=== PATIENT | male | born 1975 | race African-American/Black ===

== ENCOUNTER 2017-03-22 07:38 | Observation (INO) ==
--- NOTE | 2017-03-22 08:03 | Emergency Department Note ---
Disposition Clinical Impression: Abdominal pain Qualifiers: Abdominal location: right upper quadrant Qualified Code(s): R10.11 - Right upper quadrant pain Cholecystitis with cholelithiasis Qualifiers: Cholelithiasis location: gallbladder Cholecystitis acuity: acute Biliary obstruction: without biliary obstruction Qualified Code(s): K80.00 - Calculus of gallbladder with acute cholecystitis without obstruction Disposition: Admitted As Inpatient General Adult HPI - General Stated complaint: abd pain Time Seen by Provider: 03/22/17 07:42 Source: patient Limitations: no limitations Nursing Notes Reviewed: Yes Vital Signs Reviewed: Yes - History of Present Illness HPI Narrative: with chief complaint of RUQ abdominal pain. Onset this AM. described as sharp , constant, radiates to LUQ. No chills, fevers, diarrhea, constipation, nausea. Emesis x1 (nonbloody, nonbilious). Patient notes he has felt this pain before but is unsure as to what the cause was at that time. He is unable to compare it to previous nephrolithiasis. Patient's mother is inbound. PMH: Hx nephrolithiasis, otherwise patient states he has no past medical history Meds: patient denies any medications PSH: none. Chart check PMH: boarderline intellectual functioning, psychosis, potential for explosive behavior, gen anxiety Chart check Meds: Remron Pain Scale: 10 - Related Data Previous Rx's Medication Instructions Recorded Mirtazapine [Remeron] 15 mg PO HS #30 tablet 08/03/16 risperiDONE [RisperDAL] 1 mg PO BID #60 tablet 08/03/16 Allergies Allergy/AdvReac Type Severity Reaction Status Date / Time No Known Allergies Allergy Verified 08/26/16 03:28 Past Medical History - Past Medical History Medical history: Reports: no medical history Surgical history: Reports: other Psychiatric history: Reports: anxiety, previous psychiatric hospitalization - Social History Smoking Status: Current every day smoker Smokeless Tobacco Status: No Alcohol use: Reports: none Drug use: Reports: none Physical Exam Vital signs reviewed: Patient hypertensive which is improved after analgesia. General: Patient is alert, oriented, and in no acute distress. HEENT: No facial asymmetry. Head is normocephalic and atraumatic. Trachea midline. Cardiovascular: Heart regular rate and rhythm without clicks, rubs, gallops, or murmurs. No JVD. PMI nondisplaced. Respiratory: Symmetric chest rise with poor respiratory effort. Bilateral breath sounds are clear without wheezing, crackles, or rhonchi. Abdomen: Bowel sounds present normoactive x-4 quadrants. Abdomen is nondistended. Tenderness in the right upper quadrant with extension to the right CVA with mild pain to kidney percussion. Abdominal exam limited as patient is voluntarily guarding which is not improved with knees drawn to chest. Psych: Patient's affect is appropriate for situation. - General Limitations: no limitations General appearance: alert Course Course Narrative: Andres suspects gallbladder versus right nephrolithiasis Patient's blood work is returned with leukocytosis and AST elevation nearly 3 times upper limit of normal. His pain is improved with Toradol. US gallbladder suspicious for cholelithiasis. Spoke with Dr. Humphrey, he accepts the patient to his service. Vital Signs Temperature 97.9 F 03/22/17 07:39 Pulse Rate 74 03/22/17 07:39 Respiratory Rate 18 03/22/17 07:39 Blood Pressure 187/70 03/22/17 07:39 O2 Sat by Pulse Oximetry 100 03/22/17 07:39 Temperature 97.9 F 03/22/17 07:39 Pulse Rate 87 03/22/17 13:19 Respiratory Rate 18 03/22/17 13:19 Blood Pressure 114/69 03/22/17 13:19 O2 Sat by Pulse Oximetry 98 03/22/17 13:19 Medical Decision Making - [facility] Narrative Medical decision making narrative: I examined this patient and my medical decision-making was reviewed with the ABALONE FISHERMAN/PA/Advanced Practice Nurse/Resident Physician. I agree with the documented findings, disposition and treatment plan as described except to the extent set forth below. Patient was seen and evaluated today by Dr. Mosquera and myself, I agree with his evaluation and management plan, I supervised the care of the patient at stay. Patient presents today with right upper quadrant pain but also pain on his right flank. He thought maybe it was kidney stone. He still has his gallbladder. Was nauseous this morning none now. Has not eaten yet. No jaundice. He has some tenderness but nonsurgical abdomen. Denies any chest pain or shortness of breath no fever. Nontoxic here. Were going to try to make him comfortable, check labs, then reassess and determine if he needs imaging or not. He is in agreement with this plan. 0858 hours: Pt feeling better. SLeeping. Awaiting hepatic panel and urine. Patient had an EKG performed shows a sinus rhythm, rate is 71, QRS is 95, QTc is 386, left atrial enlargement with left axis deviation no signs of acute ischemia at this a flattening in leads 3 this EKG had done in 2010 shows no changes except for rate. Patient's labs are returning awaiting on urinalysis he is going over to ultrasound to ultrasound his gallbladder since he has an elevation in his white count. 1212 hrs.: Patient's ultrasound came back and does have signs of cholecystitis with stones. We are going to speak with surgery and get him admitted to the hospital. Patient's in agreement with this plan. Gallbladder Ultrasound 03/22/17 09:42 IMPRESSION: Abnormal gallbladder with stones and significant thickening of the wall. Acute cholecystitis should be considered. RECOMMENDATIONS: HIDA scan D/ / 03/22/2017 12:08:24 Kati Hollis MD / lisa Interpreting Provider: Kati Hollis MD 1218 hrs.: Dr. Mark accepts the patient for admission. Patient's in agreement. Waiting on bed placement. - Lab Data Result diagrams: 03/22/17 08:22 03/22/17 08:22 Lab Results 03/22/17 03/22/17 03/22/17 Range/Units 08:22 08:22 10:57 WBC 15.2 H (4.3-11.1) K/mcL RBC 4.94 (4.19-5.50) M/mcL Hgb 14.9 (12.9-16.9) g/dL Hct 43.9 (37.5-50.1) % MCV 88.9 (83.0-100.0) fL MCH 30.2 (28.0-33.3) pg MCHC 33.9 (31.6-35.5) g/dL RDW 13.2 (11.5-14.5) % Plt Count 180 (140-400) K/mcL MPV 11.8 (9.4-12.4) fL Immature Gran % 0.3 (0-4) % Seg Neutrophils % 90.0 % Lymphocytes % 5.5 % Monocytes % 2.9 % Eosinophils % 1.2 % Basophils % 0.1 % Neutrophils # 13.7 H (1.6-8.9) K/mcL Lymphocytes # 0.8 (0.6-4.6) K/mcL Monocytes # 0.4 (0.0-1.3) K/mcL Eosinophils # 0.2 (0.0-0.6) K/mcL Basophils # 0.0 (0.0-0.2) K/mcL Sodium 141 (136-145) mEq/L Potassium 3.4 L (3.5-4.5) mEq/L Chloride 106 (98-109) mEq/L Carbon Dioxide 26 (19-29) mEq/L BUN 17 (8-26) mg/dL Creatinine 1.04 (0.72-1.25) mg/dL Est GFR ( Amer) > 60 (> 60) Est GFR (Non-Af Amer) > 60 (> 60) BUN/Creatinine Ratio 16 (6-26) Glucose 97 (70-99) mg/dL Calculated Osmolality 293 (280-300) Calcium 9.2 (8.6-10.8) mg/dL Total Bilirubin 0.7 (0.2-1.2) mg/dL Direct Bilirubin 0.4 (0.0-0.5) mg/dL Indirect Bilirubin 0.3 (0.0-1.2) mg/dL AST 90 H (5-34) Units/L ALT 47 (0-55) Units/L Alkaline Phosphatase 69 (38-126) Units/L Serum Total Protein 7.1 (6.0-8.3) g/dL Albumin 3.8 (3.5-5.0) g/dL Globulin 3.3 (2.4-3.5) g/dL Albumin/Globulin Ratio 1.2 (1.1-2.2) Lipase 33 (8-78) Units/L Urine Color Dark Yellow (Yellow) Urine Clarity Clear (Clear) Urine pH 6.0 (5.0-8.0) pH Units Ur Specific [place] 1.028 H (1.010-1.025) Urine Protein Negative (Neg-Trace) mg/dL Urine Glucose (UA) Normal (Normal) mg/dL Urine Ketones Negative (Negative) mg/dL Urine Blood Negative (Negative) Urine Nitrite Negative (Negative) Urine Bilirubin Small H (Negative) Urine Urobilinogen 2.0 H (Normal) mg/dL Ur Leukocyte Esterase Negative (Negative) Ur Culture Indicated? NO (NO)
[2017-03-22] MEDS ORDERED: Ketorolac 15 MG/ML VIAL IVP ONE ×2 (08:12→17:07)
[2017-03-22] MEDS ORDERED: 0.9 % Sodium Chloride 1,000 ML IVC ONE (08:12)
[2017-03-22 08:28] LABS: Basophils % 0.1 %; Eosinophils # 0.2 K/mcL (0.0-0.6); Eosinophils % 1.2 %; Hematocrit 43.9 % (37.5-50.1); Hemoglobin 14.9 g/dL (12.9-16.9); Immature Granulocytes % 0.3 % (0-4); Lymphocytes # 0.8 K/mcL (0.6-4.6); Lymphocytes % 5.5 %; Mean Corpuscular HGB Conc 33.9 g/dL (31.6-35.5); Mean Corpuscular Hemoglobin 30.2 pg (28.0-33.3); Mean Corpuscular Volume 88.9 fL (83.0-100.0); Mean Platelet Volume 11.8 fL (9.4-12.4); Monocytes # 0.4 K/mcL (0.0-1.3); Monocytes % 2.9 %; Neutrophils # 13.7 K/mcL (1.6-8.9); Platelet Count 180 K/mcL (140-400); Red Blood Count 4.94 M/mcL (4.19-5.50); Red Cell Distribution Width 13.2 % (11.5-14.5)
[2017-03-22 08:41] LABS: BUN/Creatinine Ratio 16 (6-26); Blood Urea Nitrogen 17 mg/dL (8-26); Calcium 9.2 mg/dL (8.6-10.8); Carbon Dioxide 26 mEq/L (19-29); Chloride 106 mEq/L (98-109); Glucose 97 mg/dL (70-99); Lipase 33 Units/L (8-78); Osmolality,Calculated 293 (280-300); Potassium 3.4 mEq/L (3.5-4.5); Sodium 141 mEq/L (136-145); eGFR For African Americans > 60 (> 60); eGFR For Non-African Americans > 60 (> 60)
[2017-03-22 09:21] LABS: Alanine Aminotransferase 47 Units/L (0-55); Albumin 3.8 g/dL (3.5-5.0); Albumin/Globulin Ratio 1.2 (1.1-2.2); Alkaline Phosphatase 69 Units/L (38-126); Aspartate Amino Transferase 90 Units/L (5-34); Bilirubin,Direct 0.4 mg/dL (0.0-0.5); Bilirubin,Indirect 0.3 mg/dL (0.0-1.2); Bilirubin,Total 0.7 mg/dL (0.2-1.2); Globulin 3.3 g/dL (2.4-3.5); Total Protein 7.1 g/dL (6.0-8.3)
[2017-03-22 11:24] LABS: Bilirubin,Urine Small (Negative); Blood,Urine Negative (Negative); Clarity,Urine Clear (Clear); Color,Urine Dark Yellow (Yellow); Glucose,Urine (UA) Normal (Normal); Ketones,Urine Negative (Negative); Leukocyte Esterase,Urine Negative (Negative); Nitrite,Urine Negative (Negative); Protein,Urine Negative (Neg-Trace); Specific Gravity,Urine 1.028 (1.010-1.025)
[2017-03-22] MEDS ORDERED: Ondansetron 4 MG/2 ML VIAL IVP PRN ×2 (12:39→21:03)
[2017-03-22] MEDS ORDERED: 0.9 % Sodium Chloride 1,000 ML IVC SCH ×2 (12:45→21:03)
[2017-03-22] MEDS ORDERED: *HR* HYDROmorphone (PF) 1 MG/ML SYRINGE IVP PRN ×3 (12:46→21:03)
--- NOTE | 2017-03-22 12:52 | General Surg History&Physical ---
<Bhavya Mujica - Last Filed: 03/22/17 13:56> Date of Encounter: 03/22/17 Time of Encounter: 12:50 Assessment and Plan (1) Cholecystitis with cholelithiasis Current Visit: Yes Status: Acute Discussed Ultrasound results and lab results with patient and patients caregiver /mother. Patient with symptoms consistent with symptomatic acute cholecysitis with cholelitiasis. Diffuse abdominal tenderness to palpation on exam. Plan: Laparoscopic cholecystectomy with possible cholangiogram. Open breast and benefits discussed patient and caregiver wished to proceed. Nothing by mouth IV fluids at 75 mL per hour IV antibiotics- Mefoxin 2 g every 8 hours Supportive care and pain control Risks, benefits, alternatives, expected outcomes reviewed with the patient is agreement to proceed to the operating room with Dr. Humphrey for laparoscopic cholecystectomy in the next 24 hours Incentive spirometer every 1 hour while awake PPI therapy daily The assessment and plan as outlined above was discussed with the patient and/or family members who expressed understanding and agreement. All questions were answered. Qualifiers: Cholelithiasis location: gallbladder Cholecystitis acuity: acute Biliary obstruction: without biliary obstruction Qualified Code(s): K80.00 - Calculus of gallbladder with acute cholecystitis without obstruction (2) Borderline intellectual functioning Current Visit: Yes Status: Chronic The assessment and plan as outlined above was discussed with the patient and/or family members who expressed understanding and agreement. All questions were answered. History of Present Illness Chief complaint: stomach pain HPI: Mr. Valentine is a 41 year old male with a past medical history of MRDD, neurofibromatosis, pituitary adenoma, tobacco abuse disorder who presented to the emergency room today for evaluation of "stomach pain". Laboratory results reveal patient has leukocytosis with left shift, elevated AST, imaging of ultrasound revealed significant thickening of the gallbladder wall with cholelithiasis. Dr. Humphrey was consulted for evaluation. Patient describes that stomach pain as constant dull aching with episodes of sharp pains that radiate down to his right lower quadrant that are intermittent in nature. Stomach pain began "sometime this morning" after drinking a soda pop. Patient is unsure at what time this occurred or if he had anything to eat prior to the episode. Patient is a very poor historian and is unsure if he has ever had anything like this before. He states that this morning he did have one episode of nausea with nonbloody nonbilious emesis prior to arrival. He denies: Fever, chills, diarrhea, hematuria, pyuria, bleeding or clotting disorders, heartburn or reflux. Patient is unsure of medications he may be taking. Pain was improved with Toradol. Patient states that he lives at home with his mother Heydi. Will contact mother for further information and consent. Past Med Surg Social Fam HX - Past Medical History Source: old records reviewed Medical history: other (Neurofibromatosis, pituitary adenoma, tobacco abuse disorder) Psychiatric history: anxiety, previous psychiatric hospitalization, other (MRDD) - Past Surgical History Surgical History: other (Biopsy of chest nodule, cyst removal, right knee) - Social History Smoking Status: Current every day smoker Packs per day: 3-4 Smokeless Tobacco Status: No Alcohol use: none Drug use: none Current living situation: With Family Activity Level: Independent ambulation Recent Out of Country Travel Within the Last 8 Weeks: No Medications and Allergies No Known Home Drugs 03/22/17 [History] Allergies No Known Allergies Allergy (Verified 03/22/17 13:49) Review of Systems ROS unobtainable: due to mental status All systems PM: A 10-system review of systems was performed and is negative for pertinent findings except as documented above in the HPI. General Surgery Exam Initial Vital Signs Temp Pulse Resp BP Pulse Ox 97.9 F 74 18 187/70 100 03/22/17 07:39 03/22/17 07:39 03/22/17 07:39 03/22/17 07:39 03/22/17 07:39 - General physical appearance no distress. negative: jaundice - Eyes PERRL, normal ocular movement - ENT normal mucosa - Neck trachea midline, no venous distension - Respiratory normal expansion, normal respiratory effort, clear to auscultation - Cardiovascular Cardiovascular exam: Present: RRR, no murmurs/rubs/gallops - Abdomen Abdomen general surgery: Present: bowel sounds present, soft, tender (Patient reports tenderness diffusely all quadrants of abdomen on palpation). Absent: guarding, rebound, rigid - Integumentary Integumentary general surgery: Present: other (Diffuse neuro fibromas) - Neurologic Present: CN 2-12 grossly intact, normal sensation, other (MRDD) - Psychiatric Psychiatric general surgery: Present: oriented to person, oriented to place, speech is normal Results - Labs 03/22/17 08:22 03/22/17 08:22 Abnormal lab results WBC 15.2 K/mcL (4.3-11.1) H 03/22/17 08:22 Neutrophils # 13.7 K/mcL (1.6-8.9) H 03/22/17 08:22 Potassium 3.4 mEq/L (3.5-4.5) L 03/22/17 08:22 AST 90 Units/L (5-34) H 03/22/17 08:22 Ur Specific [place] 1.028 (1.010-1.025) H 03/22/17 10:57 Urine Bilirubin Small (Negative) H 03/22/17 10:57 Urine Urobilinogen 2.0 mg/dL (Normal) H 03/22/17 10:57 Diabetes panel 03/22/17 Range/Units 08:22 Sodium 141 (136-145) mEq/L Potassium 3.4 L (3.5-4.5) mEq/L Chloride 106 (98-109) mEq/L Carbon Dioxide 26 (19-29) mEq/L BUN 17 (8-26) mg/dL Creatinine 1.04 (0.72-1.25) mg/dL Glucose 97 (70-99) mg/dL Calcium 9.2 (8.6-10.8) mg/dL AST 90 H (5-34) Units/L ALT 47 (0-55) Units/L Alkaline Phosphatase 69 (38-126) Units/L Albumin 3.8 (3.5-5.0) g/dL Calcium panel 03/22/17 Range/Units 08:22 Calcium 9.2 (8.6-10.8) mg/dL Albumin 3.8 (3.5-5.0) g/dL Pituitary panel 03/22/17 Range/Units 08:22 Sodium 141 (136-145) mEq/L Potassium 3.4 L (3.5-4.5) mEq/L Chloride 106 (98-109) mEq/L Carbon Dioxide 26 (19-29) mEq/L BUN 17 (8-26) mg/dL Creatinine 1.04 (0.72-1.25) mg/dL Glucose 97 (70-99) mg/dL Calcium 9.2 (8.6-10.8) mg/dL Adrenal panel 03/22/17 Range/Units 08:22 Sodium 141 (136-145) mEq/L Potassium 3.4 L (3.5-4.5) mEq/L Chloride 106 (98-109) mEq/L Carbon Dioxide 26 (19-29) mEq/L BUN 17 (8-26) mg/dL Creatinine 1.04 (0.72-1.25) mg/dL Glucose 97 (70-99) mg/dL Calcium 9.2 (8.6-10.8) mg/dL Total Bilirubin 0.7 (0.2-1.2) mg/dL AST 90 H (5-34) Units/L ALT 47 (0-55) Units/L Alkaline Phosphatase 69 (38-126) Units/L Albumin 3.8 (3.5-5.0) g/dL All other labs normal. - Imaging US - abdomen: report reviewed, image reviewed <Ryley Humphrey - Last Filed: 03/22/17 15:43> Date of Encounter: 03/22/17 History of Present Illness HPI: Mr. Valentine is a 41 year old male Review of Systems All systems PM: A 10-system review of systems was performed and is negative for pertinent findings except as documented above in the HPI. General Surgery Exam Initial Vital Signs Temp Pulse Resp BP Pulse Ox 97.9 F 74 18 187/70 100 03/22/17 07:39 03/22/17 07:39 03/22/17 07:39 03/22/17 07:39 03/22/17 07:39 Results - Labs 03/22/17 08:22 03/22/17 08:22 Abnormal lab results WBC 15.2 K/mcL (4.3-11.1) H 03/22/17 08:22 Neutrophils # 13.7 K/mcL (1.6-8.9) H 03/22/17 08:22 Potassium 3.4 mEq/L (3.5-4.5) L 03/22/17 08:22 AST 90 Units/L (5-34) H 03/22/17 08:22 Ur Specific [place] 1.028 (1.010-1.025) H 03/22/17 10:57 Urine Bilirubin Small (Negative) H 03/22/17 10:57 Urine Urobilinogen 2.0 mg/dL (Normal) H 03/22/17 10:57 All other labs normal. - Attending Attestation I examined this patient and my medical decision-making was reviewed with the PACKAGER OR PACKER AND WEIGHER/PA/Advanced Practice Nurse/Resident Physician. I agree with the documented findings, disposition and treatment plan as described except to the extent set forth below. The patient is seen and evaluated in the emergency department. I concur that he has acute cholecystitis and cholelithiasis. Will be treated with IV antibiotics and urgent laparoscopic cholecystectomy. Ryley Humphrey MD FACS
[2017-03-22] MEDS ORDERED: *HR* Morphine 2 MG/ML SYRINGE IVP ONE ×2 (13:24→13:45)
[2017-03-22] MEDS ORDERED: *HR* FentaNYL (PF) 100 MCG/2 ML VIAL ONE ×2 (14:21→16:44)
[2017-03-22] MEDS ORDERED: *HR* Propofol 200 MG/20 ML VIAL IVP ONE (14:21)
[2017-03-22] MEDS ORDERED: *HR* Rocuronium Bromide 50 MG/5 ML VIAL ONE (14:21)
[2017-03-22] MEDS ORDERED: Neostigmine Methylsulfate 3 MG/3 ML SYRINGE ONE (14:21)
[2017-03-22] MEDS ORDERED: Lidocaine -MPF 2% 2 ML VIAL ONE (14:21)
[2017-03-22] MEDS ORDERED: Dexamethasone 4 MG/ML VIAL ONE ×2 (14:21→16:35)
[2017-03-22] MEDS ORDERED: Lidocaine -MPF 4% 5 ML AMPUL ONE (14:21)
[2017-03-22] MEDS ORDERED: *HR* Midazolam HCl 2 MG/2 ML VIAL ONE (14:21)
[2017-03-22] MEDS ORDERED: Ondansetron 4 MG/2 ML VIAL ONE (14:21)
[2017-03-22] MEDS ORDERED: *HR* Succinylcholine 200 MG/10 ML VIAL IVP ONE (14:21)
[2017-03-22] MEDS ORDERED: cefOXitin 2,000 MG in D5% in Water (Mini-Bag+) 100 ML IVPB SCH (16:00)
--- NOTE | 2017-03-22 16:10 | Anesthesia Evaluation PreOp ---
Date of Encounter: 03/22/17 Time of Encounter: 16:01 - Past History Planned Operation: Laparoscopic Cholecystectomy Cardiac History: Denies any Significant Hx Pulmonary History: Smoker (1 year) FOOD QUALITY TESTER History: Other (MRDD) Other Medical History: Other (neurofibromatotsis, anxiety) Anesthesia History: Past Anesthesia Alcohol Use: none Drug use: none Medications and Allergies No Known Home Drugs 03/22/17 [History] Allergies No Known Allergies Allergy (Verified 03/22/17 13:49) - Meds/Allergy Pre-op Review Medications Reviewed: Yes Allergies Reviewed: Yes Beta Blockers on Current Med List: No Anesthesia Results - Labs 03/22/17 08:22 03/22/17 08:22 - Imaging Additional studies: 02/06/2011 Stress CONCLUSION The nuclear exam quality was poor. ==> The nuclear exam reveals no definite evidence of stress-induced ischemia. ==> Inferolatetral wall fixed defect most consistent with G I activity attenuation artifact. ==> The left ventricle does not appear dilated. ==> Segmental ventricular function reveals no wall motion abnormalities. ==> The gated ejection fraction was calculated at 76%. Anesthesia Exam Vital Signs/O2 Sat, Most Current Temp Pulse Resp BP Pulse Ox 97.4 F L 73 16 133/81 99 03/22/17 14:25 03/22/17 14:25 03/22/17 14:25 03/22/17 14:25 03/22/17 14:32 Height: 5'10''/1.78 m Weight: 120 lbs/54.43 kg NPO (# of Hours): 8 Pain Scale Used: Numeric (1 - 10) - HEENT Pupil (Motor): EOMI Mallampati: III Teeth: Normal Oral Opening: Greater than 3 - FOOD QUALITY TESTER LOC: Oriented FOOD QUALITY TESTER Motor: Normal RUE, Normal LUE, Normal RLE, Normal LLE, Normal Face FOOD QUALITY TESTER Sensory: Normal: RUE, LUE, RLE, LLE, Face - Cardiac Rhythm: Regular Murmur: None - Pulmonary Breath Sounds: bilateral Clear Respiratory Effort: Symmetrical Anesthesia Assess/Plan ASA Score: 2 Modified [place] Scale for Level of Consciousness: Cooperative, oriented, and tranquil Anesthetic Plan: General Monitoring Plan: Standard Monitors Recovery Plan: PACU
[2017-03-22] MEDS ORDERED: CefOXitin 2,000 MG VIAL IVPB ONE (16:25)
[2017-03-22] MEDS ORDERED: *HR* HYDROmorphone 2 MG/ML SYRINGE ONE (16:54)
[2017-03-22] MEDS ORDERED: *HR* Labetalol 100 MG/20 ML MDV IVP PRN (17:07)
[2017-03-22] MEDS ORDERED: *HR* Promethazine 25 MG/ML VIAL IVP PRN (17:07)
[2017-03-22] MEDS ORDERED: Ondansetron 4 MG/2 ML VIAL IVP ONE ×2 (17:07→21:03)
[2017-03-22] MEDS ORDERED: Dexamethasone 4 MG/ML VIAL IVP ONE (17:07)
[2017-03-22] MEDS ORDERED: *HR* Meperidine 25 MG/ML SYRINGE IVP PRN (17:07)
--- NOTE | 2017-03-22 17:38 | Operative Note ---
Date of procedure: 03/22/17 Pre-op diagnosis: Acute cholecystitis cholelithiasis Post-op diagnosis: same Procedure: Laparoscopic cholecystectomy, attempted cholangiogram Anesthesia: ALEXY Surgeon: Ryley Humphrey Estimated blood loss (cc): 50 Specimen: Gallbladder and contents Condition: stable Disposition: PACU Procedure in Detail: Laparoscopic cholecystectomy and attempted intraoperative cholangiogram Operative procedure after informed consent and appropriate patient identification timeout the patient's take major operating suite and placed supine position given adequate general endotracheal anesthesia the abdomen is prepped and draped in sterile fashion utilizing ChloraPrep standard draping techniques timeout was taken patient is identified. I made a vertical midline incision below the umbilicus dissected down to level of fascia there are 2 traction stitches placed in the abdominal cavity was entered visually. A Freire trocar was placed in the abdomen and the abdomen was insufflated to 15 mmHg pressure CO2 the gallbladder was visualized. A placement 11 port in the subxiphoid area and 2 5 mm ports in the subcostal area. The gallbladder was grasped and elevated. A variety of blunt and sharp dissection techniques were used to isolate the cystic duct and cystic artery. The cystic artery was controlled with 2 surgical clips proximally and one distally and it was divided I placed a surgical clip on the neck the gallbladder and attempted to place a cholangiogram catheter. The cystic duct was too small to accept the cholangiogram catheter. the cystic duct was controlled with 2 surgical clips proximally and was divided the gallbladder was removed from the gallbladder fossae using electrocautery. The gallbladder was removed through the #11 port site. I replaced the #11 port and irrigated with copious amounts of antibiotic containing solution. There is no evidence of bleeding or bile leak. All trochars were removed. Fascia was closed with 0 Vicryl skin with 2-0 and 4-0 Vicryl he tolerated the procedure well and was transferred to recovery in stable condition
--- NOTE | 2017-03-22 18:44 | Anesthesia Evaluation Post Op ---
Date of Encounter: 03/22/17 Time of Encounter: 18:35 - Vital Signs Vital Signs: Vital Signs/O2 Sat, Most Current Temp Pulse Resp BP Pulse Ox 98.8 F 83 16 131/97 99 03/22/17 18:30 03/22/17 18:30 03/22/17 18:30 03/22/17 18:30 03/22/17 18:30 - Lungs Lungs: Clear Ascult./Percussion - Airway Airway: Non-obstructed - Cardiovascular Regular Rate - Mental Status Mental Status: Alert & Oriented, Answers Appropriately - Pain Pain Scale: 0 Pain Scale used: Numeric (1 - 10) - Nausea Vomiting Nausea Vomiting: Not Present - Hydration Hydration: NPO, Has not voided - Discharge PostOp Status: Transfer Patient to floor
[2017-03-22] MEDS ORDERED: *HR* OxyCODONE/APAP 5/325 TABLET PO PRN (21:03)
[2017-03-22] MEDS: cefOXitin 2,000 MG in D5% in Water (Mini-Bag+) 100 ML IVPB SCH (23:13)
[2017-03-23 05:04] LABS: Basophils % 0.1 %; Hematocrit 39.8 % (37.5-50.1); Immature Granulocytes % 0.3 % (0-4); Lymphocytes # 0.6 K/mcL (0.6-4.6); Lymphocytes % 6.7 %; Mean Corpuscular HGB Conc 33.4 g/dL (31.6-35.5); Mean Corpuscular Hemoglobin 29.6 pg (28.0-33.3); Mean Corpuscular Volume 88.4 fL (83.0-100.0); Mean Platelet Volume 12.4 fL (9.4-12.4); Monocytes # 0.6 K/mcL (0.0-1.3); Monocytes % 6.7 %; Neutrophils # 7.7 K/mcL (1.6-8.9); Platelet Count 188 K/mcL (140-400); Red Cell Distribution Width 13.2 % (11.5-14.5); Segmented Neutrophils % 86.2 %
[2017-03-23 05:05] LABS: Hemoglobin 13.3 g/dL (12.9-16.9)
[2017-03-23 05:09] LABS: BUN/Creatinine Ratio 15 (6-26); Blood Urea Nitrogen 14 mg/dL (8-26); Calcium 8.3 mg/dL (8.6-10.8); Carbon Dioxide 20 mEq/L (19-29); Chloride 109 mEq/L (98-109); Glucose 110 mg/dL (70-99); Osmolality,Calculated 285 (280-300); Sodium 137 mEq/L (136-145); eGFR For African Americans > 60 (> 60); eGFR For Non-African Americans > 60 (> 60)
[2017-03-23] MEDS: cefOXitin 2,000 MG in D5% in Water (Mini-Bag+) 100 ML IVPB SCH (07:47)
[2017-03-23 08:23] VITALS: BP 127/81
--- NOTE | 2017-03-23 08:44 | Discharge Summary ---
<Katrin Obregon - Last Filed: 03/23/17 11:10> Date of Encounter: 03/23/17 Time of Encounter: 08:38 - Discharge Diagnosis (1) Cholecystitis with cholelithiasis Priority: Primary Status: Acute Qualifiers: Cholelithiasis location: gallbladder Cholecystitis acuity: acute Biliary obstruction: without biliary obstruction Qualified Code(s): K80.00 - Calculus of gallbladder with acute cholecystitis without obstruction - Discharge Medications Home Medications: No Known Home Drugs 03/22/17 [History] Allergies/Adverse Reactions: Allergies No Known Allergies Allergy (Verified 03/22/17 13:49) General Surgery Exam Initial Vital Signs Temp Pulse Resp BP Pulse Ox 97.9 F 74 18 187/70 100 03/22/17 07:39 03/22/17 07:39 03/22/17 07:39 03/22/17 07:39 03/22/17 07:39 - General physical appearance well developed, well nourished, no distress, no pain - Eyes normal ocular movement - ENT normal mucosa, atraumatic, normocephalic - Neck no masses, trachea midline - Respiratory normal expansion, normal respiratory effort, clear to auscultation - Cardiovascular Cardiovascular exam: Present: RRR, no murmurs/rubs/gallops - Abdomen Abdomen general surgery: Present: bowel sounds present, soft, non tender - Incision Incision: Present: clean and dry - Integumentary Integumentary general surgery: Present: warm and dry, no abnormal pigmentation, other (diffuse neurofibromas) - Neurologic Present: normal sensation - Psychiatric Psychiatric general surgery: Present: oriented to person, oriented to place, speech is normal Date of admission: 03/22/17 13:02 Primary care physician: Cat Jackson DO Discharging clinician: Ryley Humphrey Anticipated date of discharge: 03/23/17 - Patient Status Disposition: Home, Self-Care Condition: Good Overall status at discharge: patient is progressing back to baseline - Discharge Instructions Follow Up With: Ryley Humphrey MD [Partnered Physician] - (1 week) Florecita Nathan CNP [Advanced Practice Nurse] - 04/01/17 11:45 am Forms: ED Satisfaction Letter, Work/School Release Additional Instructions: 1. May shower today. No tub bath for 2 weeks. 2. Wash incisions with soap and water and pat dry daily. 3. No lifting more than 10-15 lbs for 4-[address] when off narcotics for over 24 hours and able to react safely in the car. 5. May climb stairs. - Diet and Activity Activity: other (per surgical instructions) Diet: advance to your usual diet - Hospital Course Hospital course: Mr. Valentine is a 41 year old male with a past medical history of MRDD, neurofibromatosis, pituitary adenoma, tobacco abuse disorder who presented to the ED 03/22/17 for evaluation of abdominal pain. Laboratory results revealed the patient to have a leukocytosis with left shift and elevated AST. Gallbladder US significant thickening of the gallbladder wall with cholelithiasis. The patient was admitted to the hospital and provided with IV fluids, Mefoxin 2 g every 8 hours and kept nothing by mouth until surgery. A laparoscopic cholecystectomy was performed by Dr. Humphrey on 03/22/2017. The procedure was performed without complication and the patient tolerated the procedure well. There was no evidence of bleeding or bile leak. An intraoperative cholangiogram was attempted, however was unable to be completed as the cystic duct was too small to accept the cholangiogram catheter. Patient is feeling well today and will be discharged in stable condition with follow-up in one week. Surgical discharge instructions were provided to the patient. - Time Spent with Patient Total time spent providing and/or coordinating discharge services: Less than 30 minutes Labs on day of discharge: Labs from last 24 hours 03/23/17 03/23/17 04:17 04:17 WBC 8.9 RBC 4.50 Hgb 13.3 D Hct 39.8 MCV 88.4 MCH 29.6 MCHC 33.4 RDW 13.2 Plt Count 188 MPV 12.4 Immature Gran % 0.3 Seg Neutrophils % 86.2 Lymphocytes % 6.7 Monocytes % 6.7 Eosinophils % 0.0 Basophils % 0.1 Neutrophils # 7.7 Lymphocytes # 0.6 Monocytes # 0.6 Eosinophils # 0.0 Basophils # 0.0 Sodium 137 Potassium 4.0 Chloride 109 Carbon Dioxide 20 BUN 14 Creatinine 0.92 Est GFR ( Amer) > 60 Est GFR (Non-Af Amer) > 60 BUN/Creatinine Ratio 15 Glucose 110 H Calculated Osmolality 285 Calcium 8.3 L <Ryley Humphrey - Last Filed: 05/16/17 12:22> Date of Encounter: 03/23/17 General Surgery Exam Initial Vital Signs Temp Pulse Resp BP Pulse Ox 97.9 F 74 18 187/70 100 03/22/17 07:39 03/22/17 07:39 03/22/17 07:39 03/22/17 07:39 03/22/17 07:39 Date of admission: 03/22/17 13:02 Primary care physician: Cat Jackson, DO - Hospital Course Hospital course: Mr. Valentine is a 41 year old male - Time Spent with Patient Total time spent providing and/or coordinating discharge services: Labs on day of discharge: Labs from last 24 hours 03/23/17 03/23/17 04:17 04:17 WBC 8.9 RBC 4.50 Hgb 13.3 D Hct 39.8 MCV 88.4 MCH 29.6 MCHC 33.4 RDW 13.2 Plt Count 188 MPV 12.4 Immature Gran % 0.3 Seg Neutrophils % 86.2 Lymphocytes % 6.7 Monocytes % 6.7 Eosinophils % 0.0 Basophils % 0.1 Neutrophils # 7.7 Lymphocytes # 0.6 Monocytes # 0.6 Eosinophils # 0.0 Basophils # 0.0 Sodium 137 Potassium 4.0 Chloride 109 Carbon Dioxide 20 BUN 14 Creatinine 0.92 Est GFR ( Amer) > 60 Est GFR (Non-Af Amer) > 60 BUN/Creatinine Ratio 15 Glucose 110 H Calculated Osmolality 285 Calcium 8.3 L - Attending Attestation I examined this patient and my medical decision-making was reviewed with the HELICOPTER SPECIALIST/PA/Advanced Practice Nurse/Resident Physician. I agree with the documented findings, disposition and treatment plan as described except to the extent set forth below. The patient was seen and evaluated on morning rounds. His pain control is excellent and he is ready for discharge. Ryley Humphrey MD FACS
--- NOTE | 2017-03-25 15:35 | Electrocardiograph Report ---
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
== END 2017-03-23 10:35 | disposition home or self-care (01) ==
LOC: 3ANU 07:38 → EMEROO 07:38 → 3ANU 13:11
PROVIDERS: ADMIT Acupuncturist; ATTEND Surgery

== ENCOUNTER 2018-03-25 16:18 | Inpatient (IN) ==
--- NOTE | 2018-03-25 17:05 | Emergency Department Note ---
Disposition Clinical Impression: Depression Qualifiers: Depression Type: unspecified Qualified Code(s): F32.9 - Major depressive disorder, single episode, unspecified Disposition: Still a Patient Condition: Good Referrals: NONE,PCP [Primary Care Provider] - Forms: ED Satisfaction Letter Psych HPI - General Chief Complaint: ED Psychiatric Symptoms Stated Complaint: lois MANZANO had meds since july Time Seen by Provider: 03/25/18 17:00 Source: patient, EMS Mode of arrival: EMS Limitations: no limitations Nursing Notes Reviewed: Yes Vital Signs Reviewed: Yes - History of Present Illness HPI Narrative: 42-year-old with history depression comes in complaining of suicidal ideation. Patient has life stressors family problems. Pt complaint: suicidal ideation, feels depressed If medical clearance, reason: psychiatric condition Onset (ago): Just [employer] Duration: constant History of similar episodes: Yes Improves with: none Worsens with: none Associated symptoms: Reports: denies other symptoms Traumatic symptoms: denies traumatic injury Treatments prior to arrival: none Self harm or harm to others: admits thoughts of self harm - Related Data Home Medications Medication Instructions Recorded Confirmed No Known Home Drugs 03/22/17 03/22/17 Allergies Allergy/AdvReac Type Severity Reaction Status Date / Time No Known Allergies Allergy Verified 03/22/17 13:49 All systems ED: reviewed and negative except as stated. Constitutional: Denies: fever, chills, weakness, weight change Eyes: Denies: eye pain, eye discharge, vision change ENT ED: Denies: ear pain, throat pain, dental pain, hearing loss, epistaxis, congestion, dysphagia Cardiovascular: Denies: chest pain, palpitations, dyspnea on exertion, edema, syncope Respiratory: Denies: cough, dyspnea, wheezes, hemoptysis, stridor Gastrointestinal: Denies: abdominal pain, nausea, vomiting, diarrhea, constipation, hematemesis, melena, hematochezia Genitourinary: Denies: urgency, dysuria, frequency, hematuria Musculoskeletal: Denies: back pain, neck pain, arthralgia, myalgia Integumentary: Denies: rash, abrasion, lesions Neurological: Denies: headache, weakness, numbness, paresthesias, confusion, abnormal gait, vertigo Psychiatric: Reports: depression, suicidal thoughts. Denies: anxiety, homicidal thoughts, auditory hallucinations, visual hallucinations Endocrine: Denies: fatigue Hematological/Lymphatic: Denies: easy bleeding, easy bruising Allergic/Immunologic: Denies: facial swelling, urticaria Past Medical History - Past Medical History Medical history: Reports: other Surgical history: Reports: other Psychiatric history: Reports: anxiety, previous psychiatric hospitalization, other - Social History Smoking Status: Current every day smoker Smokeless Tobacco Status: No Alcohol use: Reports: none Drug use: Reports: none Physical Exam - General Limitations: no limitations General appearance: alert, in no apparent distress - Head Head exam: atraumatic, normocephalic, normal inspection - Eye Eye exam: Present: normal appearance, PERRL, EOMI - ENT ENT exam: normal exam, normal oropharynx, mucous membranes moist - Neck Neck exam: Present: normal inspection, full ROM, trachea midline - Chest Chest inspection: Present: normal inspection, symmetric chest wall rise - Respiratory Respiratory exam: Present: normal lung sounds bilaterally - Cardiovascular Cardiovascular exam: Present: regular rate, normal rhythm, normal heart sounds - Abdominal Exam Abdominal exam: Present: soft, Non-Tender. Absent: tenderness, distention, guarding, rebound, rigidity - Extremities Exam Extremities exam: Present: normal inspection, full ROM. Absent: tenderness, pedal edema - Expanded Lower Extremity Exam Neurovascular/Tendon exam: Absent: motor deficit, sensory deficit, tendon deficit Gait: observed and normal - Back Exam Back exam: Present: normal inspection, full ROM. Absent: tenderness - Neurological Exam Neurological exam: Present: alert, oriented X3 - Psychiatric Psychiatric exam: Present: normal affect, normal mood - Skin Skin exam: Present: warm, dry, intact, normal color Course Vital Signs Temperature 98.3 F 03/25/18 16:21 Pulse Rate 82 03/25/18 16:21 Respiratory Rate 18 03/25/18 16:21 Blood Pressure 150/93 03/25/18 16:21 O2 Sat by Pulse Oximetry 100 03/25/18 16:21 Temperature 98.3 F 03/25/18 16:21 Pulse Rate 82 03/25/18 16:21 Respiratory Rate 18 03/25/18 16:21 Blood Pressure 150/93 03/25/18 16:21 O2 Sat by Pulse Oximetry 100 03/25/18 16:21 Oxygen Delivery Oxygen Delivery Room Air Psych - Lab Data Result diagrams: 03/25/18 16:51 03/25/18 16:51 Lab Results 03/25/18 03/25/1818 Range/Units 16:51 16:51 16:51 WBC 5.1 (4.3-11.1) K/mcL RBC 4.67 (4.19-5.50) M/mcL Hgb 14.5 (12.9-16.9) g/dL Hct 42.0 (37.5-50.1) % MCV 89.9 (83.0-100.0) fL MCH 31.0 (28.0-33.3) pg MCHC 34.5 (31.6-35.5) g/dL RDW 13.2 (11.5-14.5) % Plt Count 196 (140-400) K/mcL MPV 12.6 H (9.4-12.4) fL Immature Gran % 0.2 (0-4) % Seg Neutrophils % 66.1 % Lymphocytes % 21.1 % Monocytes % 8.9 % Eosinophils % 3.1 % Basophils % 0.6 % Neutrophils # 3.4 (1.6-8.9) K/mcL Lymphocytes # 1.1 (0.6-4.6) K/mcL Monocytes # 0.5 (0.0-1.3) K/mcL Eosinophils # 0.2 (0.0-0.6) K/mcL Basophils # 0.0 (0.0-0.2) K/mcL Sodium 138 (136-145) mEq/L Potassium 4.1 (3.5-5.1) mEq/L Chloride 107 (98-107) mEq/L Carbon Dioxide 24 (23-29) mEq/L BUN 15 (6-20) mg/dL Creatinine 0.94 (0.70-1.30) mg/dL Est GFR ( Amer) > 60 (> 60) Est GFR (Non-Af Amer) > 60 (> 60) BUN/Creatinine Ratio 16 (6-26) Glucose 92 (70-105) mg/dL Calculated Osmolality 286 (280-300) Calcium 9.4 (8.6-10.3) mg/dL Urine Color (Yellow) Urine Clarity (Clear) Urine pH (5.0-8.0) pH Units Ur Specific [place] (1.010-1.025) Urine Protein (Neg-Trace) mg/dL Urine Glucose (UA) (Normal) mg/dL Urine Ketones (Negative) mg/dL Urine Blood (Negative) Urine Nitrite (Negative) Urine Bilirubin (Negative) Urine Urobilinogen (Normal) mg/dL Ur Leukocyte Esterase (Negative) Ur Culture Indicated? (NO) Salicylates < 2.5 L (15.0-30.0) mg/dL Urine Opiates Screen (Eowfhw=662) ng/mL Acetaminophen < 10 L (10-20) mcg/mL Ur Barbiturates Screen (Ggztgw=169) ng/mL Ur Phencyclidine Scrn (Cutoff=25) ng/mL Ur Amphetamines Screen (Cexcmp=1938) ng/mL U Benzodiazepines Scrn (Ukibna=329) ng/mL Urine Cocaine Screen (Cutoff= 300) ng/mL U Marijuana (THC) Screen (Cutoff = 50) ng/mL Ethyl Alcohol < 10 (Less than 10) mg/dL 03/25/18 03/25/18 Range/Units 20:01 20:01 WBC (4.3-11.1) K/mcL RBC (4.19-5.50) M/mcL Hgb (12.9-16.9) g/dL Hct (37.5-50.1) % MCV (83.0-100.0) fL MCH (28.0-33.3) pg MCHC (31.6-35.5) g/dL RDW (11.5-14.5) % Plt Count (140-400) K/mcL MPV (9.4-12.4) fL Immature Gran % (0-4) % Seg Neutrophils % % Lymphocytes % % Monocytes % % Eosinophils % % Basophils % % Neutrophils # (1.6-8.9) K/mcL Lymphocytes # (0.6-4.6) K/mcL Monocytes # (0.0-1.3) K/mcL Eosinophils # (0.0-0.6) K/mcL Basophils # (0.0-0.2) K/mcL Sodium (136-145) mEq/L Potassium (3.5-5.1) mEq/L Chloride (98-107) mEq/L Carbon Dioxide (23-29) mEq/L BUN (6-20) mg/dL Creatinine (0.70-1.30) mg/dL Est GFR ( Amer) (> 60) Est GFR (Non-Af Amer) (> 60) BUN/Creatinine Ratio (6-26) Glucose (70-105) mg/dL Calculated Osmolality (280-300) Calcium (8.6-10.3) mg/dL Urine Color Dark Yellow (Yellow) Urine Clarity Clear (Clear) Urine pH 6.0 (5.0-8.0) pH Units Ur Specific [place] 1.027 H (1.010-1.025) Urine Protein Negative (Neg-Trace) mg/dL Urine Glucose (UA) Normal (Normal) mg/dL Urine Ketones Negative (Negative) mg/dL Urine Blood Negative (Negative) Urine Nitrite Negative (Negative) Urine Bilirubin Small H (Negative) Urine Urobilinogen 2.0 H (Normal) mg/dL Ur Leukocyte Esterase Negative (Negative) Ur Culture Indicated? NO (NO) Salicylates (15.0-30.0) mg/dL Urine Opiates Screen Negative (Mmkdwn=718) ng/mL Acetaminophen (10-20) mcg/mL Ur Barbiturates Screen Negative (Ocmjai=972) ng/mL Ur Phencyclidine Scrn Negative (Cutoff=25) ng/mL Ur Amphetamines Screen Negative (Wylesg=7240) ng/mL U Benzodiazepines Scrn Negative (Npnfxp=764) ng/mL Urine Cocaine Screen Negative (Cutoff= 300) ng/mL U Marijuana (THC) Screen Negative (Cutoff = 50) ng/mL Ethyl Alcohol (Less than 10) mg/dL Psychiatric Medical Clearance - Medical Clearance Checklist Medical History: No Social History Section defined Current Vitals: Last Vital Signs Temp 98.3 F 03/25/18 16:21 Pulse 82 03/25/18 16:21 Resp 18 03/25/18 16:21 BP 150/93 03/25/18 16:21 Pulse Ox 100 03/25/18 16:21 Psychiatric Lab Panel: Drug Levels and Toxicity 03/25/18 03/25/18 03/25/18 16:51 16:51 20:01 Urine Opiates Screen Negative Acetaminophen < 10 L Ur Barbiturates Screen Negative Ur Phencyclidine Scrn Negative Ur Amphetamines Screen Negative U Benzodiazepines Scrn Negative Urine Cocaine Screen Negative U Marijuana (THC) Screen Negative Ethyl Alcohol < 10 Abnormal Labs: Abnormal lab results MPV 12.6 fL (9.4-12.4) H 03/25/18 16:51 Ur Specific [place] 1.027 (1.010-1.025) H 03/25/18 20:01 Urine Bilirubin Small (Negative) H 03/25/18 20:01 Urine Urobilinogen 2.0 mg/dL (Normal) H 03/25/18 20:01 Salicylates < 2.5 mg/dL (15.0-30.0) L 03/25/18 16:51 Acetaminophen < 10 mcg/mL (10-20) L 03/25/18 16:51 Statement of Medical Clearance: I have evaluated the patient, reviewed diagnostic information, and certify that the patient's medical condition is sufficiently stable that transfer to the psychiatric unit does not pose a significant risk of deterioration. S.B.A.R. - S.B.A.R. Recommendation: Recommendation based on pending studies, treatments, or consults S.B.A.R. Report Given to: Dr Carlton Brice
[2018-03-25 17:09] LABS: Basophils % 0.6 %; Eosinophils # 0.2 K/mcL (0.0-0.6); Eosinophils % 3.1 %; Hemoglobin 14.5 g/dL (12.9-16.9); Immature Granulocytes % 0.2 % (0-4); Lymphocytes # 1.1 K/mcL (0.6-4.6); Lymphocytes % 21.1 %; Mean Corpuscular HGB Conc 34.5 g/dL (31.6-35.5); Mean Corpuscular Volume 89.9 fL (83.0-100.0); Mean Platelet Volume 12.6 fL (9.4-12.4); Monocytes # 0.5 K/mcL (0.0-1.3); Monocytes % 8.9 %; Neutrophils # 3.4 K/mcL (1.6-8.9); Platelet Count 196 K/mcL (140-400); Red Blood Count 4.67 M/mcL (4.19-5.50); Red Cell Distribution Width 13.2 % (11.5-14.5); Segmented Neutrophils % 66.1 %
[2018-03-25 17:58] LABS: Acetaminophen < 10 mcg/mL (10-20)
[2018-03-25 19:44] LABS: BUN/Creatinine Ratio 16 (6-26); Blood Urea Nitrogen 15 mg/dL (6-20); Calcium 9.4 mg/dL (8.6-10.3); Carbon Dioxide 24 mEq/L (23-29); Chloride 107 mEq/L (98-107); Glucose 92 mg/dL (70-105); Osmolality,Calculated 286 (280-300); Potassium 4.1 mEq/L (3.5-5.1); Salicylate < 2.5 mg/dL (15.0-30.0); Sodium 138 mEq/L (136-145); eGFR For African Americans > 60 (> 60); eGFR For Non-African Americans > 60 (> 60)
[2018-03-25 20:28] LABS: Bilirubin,Urine Small (Negative); Blood,Urine Negative (Negative); Clarity,Urine Clear (Clear); Color,Urine Dark Yellow (Yellow); Glucose,Urine (UA) Normal (Normal); Ketones,Urine Negative (Negative); Leukocyte Esterase,Urine Negative (Negative); Nitrite,Urine Negative (Negative); Protein,Urine Negative (Neg-Trace); Specific Gravity,Urine 1.027 (1.010-1.025)
[2018-03-25 20:31] LABS: Amphetamine Screen,Urine Negative ng/mL (Cutoff=1000); Barbiturate Screen,Urine Negative ng/mL (Cutoff=200); Benzodiazepines Screen,Urine Negative ng/mL (Cutoff=200); Cannabinoid Screen,Urine Negative ng/mL (Cutoff = 50); Cocaine Screen,Urine Negative ng/mL (Cutoff= 300); Opiate Screen,Urine Negative ng/mL (Cutoff=300); Phencyclidine Screen,Urine Negative ng/mL (Cutoff=25)
[2018-03-26] MEDS ORDERED: MOM Conc 10 ML UD.LIQ PO PRN (00:52)
[2018-03-26] MEDS ORDERED: Haloperidol Lactate 5 MG/ML VIAL IM PRN (00:52)
[2018-03-26] MEDS ORDERED: *HR* LORazepam 1 MG TABLET PO PRN (00:52)
[2018-03-26] MEDS ORDERED: hydrOXYzine pamoate 25 MG CAPSULE PO PRN (00:52)
[2018-03-26] MEDS ORDERED: Ibuprofen 400 MG TABLET PO PRN (00:52)
[2018-03-26] MEDS ORDERED: *HR* LORazepam 2 MG/ML VIAL IM PRN (00:52)
[2018-03-26] MEDS ORDERED: *HR* LORazepam 1 MG TABLET PO ONE (01:06)
[2018-03-26] MEDS ORDERED: Mag Hydrox/Al Hydrox/Simeth 30 ML UDC PO PRN (01:51)
--- NOTE | 2018-03-26 10:55 | Psychiatry History & Physical ---
Date of Encounter: 03/26/18 Time of Encounter: 10:30 History of Present Illness Patient Stated Chief Complaint: " i was going jump over a bridge Medicare Admission Attestation: For traditional Medicare patients the provided hospital inpatient services are reasonable and necessary and in the case of services not specified as inpatient -only under 42 CFR 419.22 (n), that they are appropriately provided as inpatient services in accordance 42 CFR 412.3. For Critical Access Hospital the patient may reasonably be expected to be discharged or transferred to a hospital within 96 hours after admission to the Critical Access Hospital. History of Present Illness: Mr. Valentine is a 42 year old male, single, lives with mom, intellectually challenged, on SSI, with depression, denied h/o illict drug use, denied h/o violence/incarceration, multiple inpatient hospitalizations most recent 07/24 at [facility], h/o medication and aftercare noncompliance who self presented to the ED on account of having suicidal thoughts with a plan and intent to jump over a bridge. Patient was subsequently transferred to after medical clearance. There has been no behavioral issues or incident since his addition on the unit. He was seen this morning in the office. He was calm and cooperative. Patient appeared, disheveled, malodorous, with subcutaneous lesions and scratch bull all over his body, repeatedly fidgety and scratching himself through out his evaluation. He described the lesions as multiple tumors which were present at . Patient was noted delay in his response, acting bizarre and intermittently evasive. He is unable to give details of his symptoms but stated he was going to jump off a bridge but called a friend who asked him to come to the ED. Patient is unsure of his diagnosis and medication hx. Stated he has not been on any medications since the last time he was discharged from here. He also did not keep his follwo up appointment. He reported feeling depressed but unable to provide additional details of his symptoms. On review of symptoms, he denied any mood or psychotic symptoms including Ah/VH/HI. Past Med Surg Social Fam HX - Past Medical History Medical history: other - Past Psychiatric History Psychiatric history: Reports: depression, previous psychiatric hospitalization Family psychiatric history: Unknown Family History of Suicide: Unknown - Past Surgical History Surgical History: cholecystectomy, other - Social History Smoking Status: Current every day smoker Packs per day: one Smokeless Tobacco Status: No Alcohol use: none Drug use: none Occupational status: unemployed Current living situation: With Family Activity Level: Independent ambulation Recent Out of Country Travel Within the Last 8 Weeks: No Exposure or Possible Exposure to Illness During Travel: No Medications & Allergies No Known Home Drugs 03/22/17 [History] 3 Allergy/AdvReac Type Severity Reaction Status Date / Time No Known Allergies Allergy Verified 03/22/17 13:49 Review of Systems Constitutional: Denies: fever, chills, weakness, weight change Eyes: Denies: eye pain, vision change Ears, Nose, Throat: Denies: ear pain, throat pain, dental pain, hearing loss, congestion Cardiovascular: Denies: chest pain, palpitations, dyspnea on exertion Respiratory: Denies: cough, dyspnea, wheezes Gastrointestinal: Denies: abdominal pain, nausea, vomiting, diarrhea, constipation Genitourinary male: Denies: urgency, dysuria, frequency, genital lesions Musculoskeletal: Denies: joint swelling, joint pain Integumentary: Reports: rash, lesions. Denies: pruritus Neurological: Denies: headache, weakness, numbness, memory loss Psychiatric: Reports: depression, suicidal ideation Endocrine: Denies: fatigue, heat or cold intolerance Hematologic/Lymphatic: Denies: easy bruising, lymphadenopathy Allergic/Immunologic: Denies: urticaria, itchy eyes Exam - HEENT Head exam IM: Present: atraumatic Eye exam IM: Present: EOMI, normal appearance, PERRL ENT exam IM: Present: normal exam - Neurological Neurological exam: Present: CN II-XII intact - Respiratory Respiratory exam IM: Present: CTAB - GI/Abdominal GI/Abdominal exam IM: Present: normal bowel sounds, soft. Absent: tenderness - Extremities Extremities exam IM: Present: full ROM - Skin Skin exam IM: Present: excoriation, rash - Constitutional Vitals: Temp Pulse Resp BP Pulse Ox 98.3 F 76 18 129/84 100 03/26/18 09:00 03/26/18 09:00 03/26/18 09:00 03/26/18 09:00 03/25/18 16:21 General appearance: unkempt, disheveled, malodorous, bizarre - Musculoskeletal Gait: normal Station: relaxed - Psychiatric Patient Orientation: Yes Person, Yes Place, Yes Circumstance Level of alertness: Alert Behavior: nervous Psychomotor activity: Normal Eye Contact: Maintains Eye Contact Mood Description: Depressed Affect description: incongruent with mood Speech Volume: Soft/Quiet Speech pattern: normal rate, normal rhythm, normal tone, fluent, spontaneous Language & Vocabulary: consistent with education Thought Process: Logical, Goal Oriented, [place] Thought Content: Yes Suicidal ideation Perceptual Disturbances: Yes Reacting to internal stimuli Attention Span Ability: Capable of Sustained Attention Memory Description: Grossly Intact Patient Reliability: Questionable Historian Fund of knowledge: Yes below average Intelligence Estimate: Below Average Judgment: Poor Insight: None Results - Labs Labs: Laboratory Last Values WBC 5.1 K/mcL (4.3-11.1) 03/25/18 16:51 RBC 4.67 M/mcL (4.19-5.50) 03/25/18 16:51 Hgb 14.5 g/dL (12.9-16.9) 03/25/18 16:51 Hct 42.0 % (37.5-50.1) 03/25/18 16:51 MCV 89.9 fL (83.0-100.0) 03/25/18 16:51 MCH 31.0 pg (28.0-33.3) 03/25/18 16:51 MCHC 34.5 g/dL (31.6-35.5) 03/25/18 16:51 RDW 13.2 % (11.5-14.5) 03/25/18 16:51 Plt Count 196 K/mcL (140-400) 03/25/18 16:51 MPV 12.6 fL (9.4-12.4) H 03/25/18 16:51 Immature Gran % 0.2 % (0-4) 03/25/18 16:51 Seg Neutrophils % 66.1 % 03/25/18 16:51 Lymphocytes % 21.1 % 03/25/18 16:51 Monocytes % 8.9 % 03/25/18 16:51 Eosinophils % 3.1 % 03/25/18 16:51 Basophils % 0.6 % 03/25/18 16:51 Neutrophils # 3.4 K/mcL (1.6-8.9) 03/25/18 16:51 Lymphocytes # 1.1 K/mcL (0.6-4.6) 03/25/18 16:51 Monocytes # 0.5 K/mcL (0.0-1.3) 03/25/18 16:51 Eosinophils # 0.2 K/mcL (0.0-0.6) 03/25/18 16:51 Basophils # 0.0 K/mcL (0.0-0.2) 03/25/18 16:51 Sodium 138 mEq/L (136-145) 03/25/18 16:51 Potassium 4.1 mEq/L (3.5-5.1) 03/25/18 16:51 Chloride 107 mEq/L (98-107) 03/25/18 16:51 Carbon Dioxide 24 mEq/L (23-29) 03/25/18 16:51 BUN 15 mg/dL (6-20) 03/25/18 16:51 Creatinine 0.94 mg/dL (0.70-1.30) 03/25/18 16:51 Est GFR ( Amer) > 60 (> 60) 03/25/18 16:51 Est GFR (Non-Af Amer) > 60 (> 60) 03/25/18 16:51 BUN/Creatinine Ratio 16 (6-26) 03/25/18 16:51 Glucose 92 mg/dL (70-105) 03/25/18 16:51 Calculated Osmolality 286 (280-300) 03/25/18 16:51 Calcium 9.4 mg/dL (8.6-10.3) 03/25/18 16:51 Urine Color Dark Yellow (Yellow) 03/25/18 20:01 Urine Clarity Clear (Clear) 03/25/18 20:01 Urine pH 6.0 pH Units (5.0-8.0) 03/25/18 20:01 Ur Specific [place] 1.027 (1.010-1.025) H 03/25/18 20:01 Urine Protein Negative mg/dL (Neg-Trace) 03/25/18 20:01 Urine Glucose (UA) Normal mg/dL (Normal) 03/25/18 20:01 Urine Ketones Negative mg/dL (Negative) 03/25/18 20:01 Urine Blood Negative (Negative) 03/25/18 20:01 Urine Nitrite Negative (Negative) 03/25/18 20:01 Urine Bilirubin Small (Negative) H 03/25/18 20:01 Urine Urobilinogen 2.0 mg/dL (Normal) H 03/25/18 20:01 Ur Leukocyte Esterase Negative (Negative) 03/25/18 20:01 Ur Culture Indicated? NO (NO) 03/25/18 20:01 Salicylates < 2.5 mg/dL (15.0-30.0) L 03/25/18 16:51 Urine Opiates Screen Negative ng/mL (Vthevq=404) 03/25/18 20:01 Acetaminophen < 10 mcg/mL (10-20) L 03/25/18 16:51 Ur Barbiturates Screen Negative ng/mL (Ircmgy=574) 03/25/18 20:01 Ur Phencyclidine Scrn Negative ng/mL (Cutoff=25) 03/25/18 20:01 Ur Amphetamines Screen Negative ng/mL (Tbbbkm=6428) 03/25/18 20:01 U Benzodiazepines Scrn Negative ng/mL (Jhagrr=078) 03/25/18 20:01 Urine Cocaine Screen Negative ng/mL (Cutoff= 300) 03/25/18 20:01 U Marijuana (THC) Screen Negative ng/mL (Cutoff = 50) 03/25/18 20:01 Ethyl Alcohol < 10 mg/dL (Less than 10) 03/25/18 16:51 Assessment and Plan (1) Psychosis Current visit: No Status: Acute Qualifiers: Psychosis type: unspecified psychosis type Qualified Code(s): F29 - Unspecified psychosis not due to a substance or known physiological condition (2) Depression Current visit: Yes Status: Acute Qualifiers: Depression Type: unspecified Qualified Code(s): F32.9 - Major depressive disorder, single episode, unspecified (3) Suicidal ideation Current visit: No Status: Acute (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
[2018-03-26] MEDS: Mirtazapine 15 MG TABLET PO SCH (20:22)
[2018-03-26] MEDS: traZODone 50 MG TABLET PO PRN (20:22)
[2018-03-27] MEDS ORDERED: risperiDONE 1 MG TABLET PO SCH (09:00)
--- NOTE | 2018-03-27 12:04 | Psychiatry Progress Note ---
Date of Encounter: 03/27/18 Time of Encounter: 11:30 Subjective Interval history: Identifying Data: Mr. Valentine is a 42 year old male, single, lives with mom, intellectually challenged, on SSI, with depression, denied h/o illict drug use, denied h/o violence/incarceration, multiple inpatient hospitalizations most recent 07/24 at [facility], h/o medication and aftercare noncompliance who self presented to the ED on account of having suicidal thoughts with a plan and intent to jump over a bridge. Patient was subsequently transferred to after medical clearance. Interval Hx: There has been no behavioral issues or incident overnight. Patient discussed on rounds by a multidisciplinary treatment team. Patient reportedly informed staff yesterday the commercial front load driver was getting information from him for the FBI. Patient was seen in the day room this morning. He remains guarded providing minimal information which could be due to his paranoia. He stated he is still not doing well and having suicidal thoughts of jumping off a bridge.. Self care is still poor. Patient is compliant with his medications and denied any side effects. He denied problems with his sleep or appetite. On review of symptoms, he denied any mood or psychotic symptoms including Ah/VH/HI. Patient is guarded , delusional and paranoid with poor judgment and impulse control. He remains a risk to self and others hence will continue to benefit from inpatient hospitalization. Review of Systems Constitutional: Denies: fever, chills, weakness, weight change Eyes: Denies: eye pain, vision change Ears, Nose, Throat: Denies: ear pain, throat pain, dental pain, hearing loss, congestion Cardiovascular: Denies: chest pain, palpitations, dyspnea on exertion Respiratory: Denies: cough, dyspnea, wheezes Gastrointestinal: Denies: abdominal pain, nausea, vomiting, diarrhea, constipation Musculoskeletal: Denies: joint swelling, joint pain Neurological: Denies: headache, weakness, numbness, memory loss Psychiatric: Reports: depression, suicidal ideation Results - Vital Signs Vital Signs: Temp Pulse Resp BP Pulse Ox 97.5 F L 84 18 135/84 100 03/26/18 20:16 03/26/18 20:16 03/26/18 20:16 03/26/18 20:16 03/25/18 16:21 Assessment and Plan (1) Psychosis Current visit: No Status: Acute Qualifiers: Psychosis type: unspecified psychosis type Qualified Code(s): F29 - Unspecified psychosis not due to a substance or known physiological condition (2) Depression Current visit: Yes Status: Acute Qualifiers: Depression Type: unspecified Qualified Code(s): F32.9 - Major depressive disorder, single episode, unspecified (3) Suicidal ideation Current visit: No Status: Acute (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 Consult Discharge Plan - Plan Referrals: NONE,PCP [Primary Care Provider] - Psychiatry Exam - Constitutional Vitals: Temp Pulse Resp BP Pulse Ox 97.5 F L 84 18 135/84 100 03/26/18 20:16 03/26/18 20:16 03/26/18 20:16 03/26/18 20:16 03/25/18 16:21 General appearance: unkempt, disheveled, malodorous - Musculoskeletal Gait: normal Station: relaxed Strength & Tone: normal for patient - Psychiatric Patient Orientation: Yes Person, Yes Place Level of alertness: Alert Behavior: guarded, suspicious, withdrawn Psychomotor activity: Slowed Eye Contact: Minimal Contact Mood Description: Depressed Affect description: flat Speech Volume: Normal Speech pattern: other Language & Vocabulary: limited Thought Process: Slowed Thinking Thought Content: Yes Suicidal ideation Perceptual Disturbances: No Auditory hallucinations, No Visual hallucinations Attention Span Ability: Capable of Focused Attention Memory Description: Grossly Intact Patient Reliability: Questionable Historian Fund of knowledge: Yes below average Intelligence Estimate: Below Average Judgment: Poor Insight: Minimal
[2018-03-27] MEDS: risperiDONE 1 MG TABLET PO SCH (20:51)
[2018-03-27] MEDS: traZODone 50 MG TABLET PO PRN (20:51)
[2018-03-27] MEDS: Mirtazapine 15 MG TABLET PO SCH (20:51)
[2018-03-28] MEDS: risperiDONE 1 MG TABLET PO SCH ×2 (09:02→21:00)
--- NOTE | 2018-03-28 17:17 | Psychiatry Progress Note ---
Date of Encounter: 03/28/18 Time of Encounter: 17:00 Subjective Interval history: This patient has an unusual presentation of psychosis. He is unable to tell me much in his history but he has been off psychiatric medicines for the past few months. He says that the reason he got suicidal was because a manager business systems told him that [employer]ahl[facility] most wanted was looking for him. He says he became distressed and he thought about jumping off bridge. He is feeling better on the unit and does not have an immediate plan to kill himself in the hospital. Nonetheless the patient is heard the voices of demons and continues to believe that this may be going on been restarted on his medicines and appears to be adjusting to. Patient indicates that he has an apartment and that he would like to go home by . However he may not have all the residential resources. The patient was to be followed at the [facility] but apparently was lost to follow-up. 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 He has some slightly odd movements and postures. He is limited in his speech and does not elaborate much he appears to be shy and retiring in conversation. Patient reports a favorable response to Risperdal and mirtazapine. The patient reports onset of auditory hallucinations after his 30s which is not typical for schizophrenia. There is no brain imaging for immediate impaired no seizures he is able to report Review of Systems Integumentary: Reports: lesions Psychiatric: Reports: depression, anxiety, suicidal ideation, auditory hallucinations Results - Vital Signs Vital Signs: Temp Pulse Resp BP Pulse Ox 98.2 F 79 16 116/77 100 03/28/18 10:47 03/28/18 10:47 03/28/18 10:47 03/28/18 10:47 03/25/18 16:21 Assessment and Plan (1) Neurofibromatosis Current visit: Yes Status: Chronic Plan: Close observation, Encourage participation in unit milieu, Family/ Supportive other meeting Risks, benefits, side effects, alternatives discussed w/pt: Yes Patient agreeable to treatment: Yes (2) Hallucinations Current visit: Yes Status: Acute Plan: Continue hospitalization, Suicide Precautions per unit protocol, Encourage participation in unit milieu (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 Current visit: Yes Status: Acute Plan: Continue hospitalization, Close observation, Suicide Precautions per unit protocol Risks, benefits, side effects, alternatives discussed w/pt: Yes Patient agreeable to treatment: Yes (4) Suicidal ideation Current visit: No Status: Acute Plan: Continue hospitalization, Suicide Precautions per unit protocol, Secure weapons Risks, benefits, side effects, alternatives discussed w/pt: Yes Patient agreeable to treatment: Yes Consult Discharge Plan - Plan Referrals: NONE,PCP [Primary Care Provider] - Psychiatry Exam - Constitutional Vitals: Temp Pulse Resp BP Pulse Ox 98.2 F 79 16 116/77 100 03/28/18 10:47 03/28/18 10:47 03/28/18 10:47 03/28/18 10:47 03/25/18 16:21 General appearance: age & developmentally appropriate, thin - Musculoskeletal Gait: normal Station: crouching Strength & Tone: abnormal flexion - Psychiatric Patient Orientation: Yes Person, Yes Time, Yes Place, Yes Circumstance Level of alertness: Alert Behavior: cooperative, nervous, anxious Psychomotor activity: Slowed Eye Contact: Maintains Eye Contact Mood Description: Depressed, Anxious Affect description: anxious Speech Volume: Soft/Quiet Speech pattern: impoverished Language & Vocabulary: limited Thought Process: Linear, Thought Blocking Thought Content: Yes Suicidal ideation Perceptual Disturbances: Yes Auditory hallucinations Attention Span Ability: Capable of Sustained Attention Patient Reliability: Questionable Historian Fund of knowledge: Yes below average Intelligence Estimate: Below Average Judgment: Limited Insight: Minimal
[2018-03-28] MEDS: Mirtazapine 15 MG TABLET PO SCH (21:00)
[2018-03-29] MEDS: risperiDONE 1 MG TABLET PO SCH ×2 (08:46→20:21)
--- NOTE | 2018-03-29 14:42 | Psychiatry Progress Note ---
Date of Encounter: 03/29/18 Time of Encounter: 14:30 Subjective Interval history: The patient has requested to be discharged. He feels that he is doing better. Nursing staff observed him attending to hallucinations. The patient been previously followed by a developmental disorder clinic and by a local mental health clinic. He tends to speak in one-word sentences and he did sleep well. He noted no side effects. The patient provided me with the his mother's phone number so that additional history could be obtained. He is an unreliable historian due to developmental delay Review of Systems Psychiatric: Reports: depression, anxiety, auditory hallucinations Results - Vital Signs Vital Signs: Temp Pulse Resp BP Pulse Ox 98.3 F 80 16 123/82 100 03/28/18 21:00 03/29/18 09:00 03/29/18 09:00 03/29/18 09:00 03/25/18 16:21 Assessment and Plan (1) Neurofibromatosis Current visit: Yes Status: Chronic Plan: Continue hospitalization, Close observation, Family/Supportive other meeting Risks, benefits, side effects, alternatives discussed w/pt: Yes Patient agreeable to treatment: Yes (2) Hallucinations Current visit: Yes Status: Acute Plan: Continue hospitalization, Group Therapy Risks, benefits, side effects, alternatives discussed w/pt: Yes Patient agreeable to treatment: Yes (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 Current visit: Yes Status: Acute Plan: Continue hospitalization, Suicide Precautions per unit protocol, Group Therapy, Monitor appetite Risks, benefits, side effects, alternatives discussed w/pt: Yes Patient agreeable to treatment: Yes (4) Suicidal ideation Current visit: No Status: Suspected Plan: Continue hospitalization, Close observation Risks, benefits, side effects, alternatives discussed w/pt: Yes Patient agreeable to treatment: Yes Consult Discharge Plan - Plan Referrals: NONE,PCP [Primary Care Provider] - Psychiatry Exam - Constitutional Vitals: Temp Pulse Resp BP Pulse Ox 98.3 F 80 16 123/82 100 03/28/18 21:00 03/29/18 09:00 03/29/18 09:00 03/29/18 09:00 03/25/18 16:21 General appearance: age & developmentally appropriate, thin - Musculoskeletal Gait: slow Strength & Tone: normal for patient - Psychiatric Patient Orientation: Yes Person, Yes Time, Yes Place, Yes Circumstance Level of alertness: Alert Behavior: cooperative Psychomotor activity: Slowed Eye Contact: Maintains Eye Contact Mood Description: Anxious Affect description: constricted Speech Volume: Soft/Quiet Speech pattern: normal tone, limited Language & Vocabulary: limited Thought Process: Logical, [place] Thought Content: Yes Intact Perceptual Disturbances: Yes Reacting to internal stimuli, Yes Auditory hallucinations Attention Span Ability: Capable of Sustained Attention Memory Description: Recent Intact Patient Reliability: Not Reliable Historian Fund of knowledge: Yes below average Intelligence Estimate: Below Average Judgment: Limited Insight: Minimal
[2018-03-29] MEDS: Mirtazapine 15 MG TABLET PO SCH (20:21)
[2018-03-30] MEDS: risperiDONE 1 MG TABLET PO SCH ×2 (09:10→21:25)
--- NOTE | 2018-03-30 12:51 | Psychiatry Progress Note ---
Date of Encounter: 03/30/18 Time of Encounter: 12:45 Subjective Interval history: The patient is a 42-year-old -[place] man. The patient has been doing better. He has shown improvement in ADLs. He has spoken in full sentences. He has signed a voluntary admission so that he can stay. The patient would like to return home by like to attend the local festival. The patient has not been wearing scrubs at night. He noted was seen lying in bed but denies excessive sedation. In the past the patient had sedation from Risperdal Consta. The patient's able to verbalize his understanding. He has some difficulty with some concepts but seems to do better with reinforcement. The patient agrees that he will take his medicine that he will follow-up at the local mental Health Center. He feels his mood is good and is able to go home Patient reports that he had suicidal ideation on admission but they no longer has thoughts suicide. Review of Systems Psychiatric: Reports: depression, anxiety Results - Vital Signs Vital Signs: Temp Pulse Resp BP Pulse Ox 98.2 F 91 16 120/86 100 03/29/18 20:07 03/30/18 09:00 03/30/18 09:00 03/30/18 09:00 03/25/18 16:21 Assessment and Plan (1) Neurofibromatosis Current visit: Yes Status: Chronic Plan: Continue hospitalization, Close observation, Encourage participation in unit milieu, Group Therapy, Family/Supportive other meeting Risks, benefits, side effects, alternatives discussed w/pt: Yes Patient agreeable to treatment : Yes (2) Hallucinations Current visit: Yes Status: Acute Plan: Continue hospitalization, Close observation, Monitor appetite Risks, benefits, side effects, alternatives discussed w/pt: Yes Patient agreeable to treatment: Yes (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 If you have any needs you may call her at [phone]. Referrals: [facility] [Outside] - 04/07/18 11:00 am (The above appointment is with Ligia Austin for outpatient mental health counseling services. You will also see Nancy Castro for outpatient psychaitric assessment and medication management services on 04/29/2018 at 9:00 AM.) Psychiatry Exam - Constitutional Vitals: Temp Pulse Resp BP Pulse Ox 98.2 F 91 16 120/86 100 03/29/18 20:07 03/30/18 09:00 03/30/18 09:00 03/30/18 09:00 03/25/18 16:21 General appearance: age & developmentally appropriate, well-groomed, well- nourished - Musculoskeletal Gait: normal Station: relaxed Strength & Tone: normal for patient - Psychiatric Patient Orientation: Yes Person, Yes Time, Yes Place Level of alertness: Alert Behavior: calm, cooperative Psychomotor activity: Normal Eye Contact: Maintains Eye Contact Mood Description: Euthymic/stable Affect description: congruent with mood, constricted Speech Volume: Soft/Quiet Speech pattern: normal rate, normal rhythm, normal tone, impoverished, monotone Language & Vocabulary: consistent with education Thought Process: Linear, Goal Oriented Thought Content: No Suicidal ideation, No Homicidal ideation, No Overt delusions Perceptual Disturbances: Yes Auditory hallucinations, No Visual hallucinations Attention Span Ability: Capable of Sustained Attention Memory Description: Grossly Intact Intelligence Estimate: Below Average Judgment: Limited Insight: Minimal
[2018-03-30] MEDS: Mirtazapine 15 MG TABLET PO SCH (21:24)
[2018-03-31] MEDS: risperiDONE 1 MG TABLET PO SCH (08:38)
--- NOTE | 2018-03-31 08:50 | Discharge Summary ---
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 Priority: Primary Status: Acute (4) Suicidal ideation Priority: Secondary Status: Resolved Medications - Discharge Medications Prescriptions: Mirtazapine [Remeron] 7.5 mg PO HS 30 Days #30 tablet risperiDONE [RisperDAL] 1 mg PO BID 30 Days #60 tablet Mirtazapine [Remeron] 7.5 mg PO HS 30 Days #30 tablet 03/31/18 [Rx] risperiDONE [RisperDAL] 1 mg PO BID 30 Days #60 tablet 03/31/18 [Rx] 3 Allergy/AdvReac Type Severity Reaction Status Date / Time No Known Allergies Allergy Verified 03/22/17 13:49 Provider Date of admission: 03/25/18 23:47 Primary care physician: PCP NONE Discharging clinician: Jose Boudreaux Psychiatry Exam - Constitutional Vitals: Temp Pulse Resp BP Pulse Ox 99.2 F 81 16 133/92 100 03/30/18 20:58 03/30/18 20:58 03/30/18 20:58 03/30/18 20:58 03/25/18 16:21 General appearance: age & developmentally appropriate, thin - Musculoskeletal Gait: slow Station: other, stooped Strength & Tone: normal for patient - Psychiatric Patient Orientation: Yes Person, Yes Time, Yes Place Level of alertness: Alert Behavior: calm Psychomotor activity: Slowed Eye Contact: Maintains Eye Contact Mood Description: Euthymic/stable Affect description: congruent with mood Speech Volume: Normal Speech pattern: normal rate, slowed, impoverished Language & Vocabulary: grade school level Thought Process: Intact Thought Content: Yes Intact Perceptual Disturbances: No Auditory hallucinations, No Visual hallucinations Attention Span Ability: Capable of Focused Attention Memory Description: Immediate Intact, Recent Impaired, Remote Impaired Fund of knowledge: Yes below average Intelligence Estimate: Below Average Judgment: Limited Insight: Minimal Hospital Course Hospital course: Mr. Valentine is a 42 year old male The patient was admitted to the psychiatric unit. He was a good historian. The patient presented with hallucinations and with a plan to jump off the bridge. He had very limited verbal skills but nonetheless had suicidal intent. Patient is known to the unit and local mental health and was restarted on his outpatient medicines. The patient has a developmental delay from neurofibromatosis. He has very limited verbal skills nonetheless he participated in groups. His mother was able to verify his address his previous treatment.. To briefly summarize the patient had not taken his medicines for 6 months he previously was followed by DD services and by the local mental [facility]. However he was lost to follow-up. Over the patient's hospital course the medicines were restarted he tolerated them without significant difficulty he improved in his hygiene he improved verbally by going from one word sentences to more elaborate sentences. He was pleasant and polite. He reported that he had heard voices but did not report significant disturbances of auditory hallucinations prior to discharge. The patient was attending to hallucinations early in the hospital course by did not seem to be attending to hallucinations prior to discharge. Discharge follow-up and arrangements were made for the patient side effects were discussed - Time Spent with Patient Total time spent providing and/or coordinating discharge services: Less than 30 minutes Assessment and Plan - Patient/Caregiver Discharge Instructions Activity: resume usual activities as tolerated Diet: regular diet Additional Instructions: You have a case folder, Sasha, through your [employer] insurance. If you have any needs you may call her at [phone]. - Follow up Plan Follow up with: Ortiz Khan [facility] [Outside] - 04/07/18 11:00 am (The above appointment is with Ligia Austin for outpatient mental health counseling services. You will also see Nancy Castro for outpatient psychaitric assessment and medication management services on 04/29/2018 at 9:00 AM.) Overall status at discharge: Stable Disposition: Home, Self-Care Quality - Multiple Antipsychotics Patient discharged on 2 or more antipsychotic medications: No Procedures - Procedures Procedures: Medication Management, Crisis Stabilization, Supportive Therapy, Group Therapy, Psychoeducational Therapy
[2018-03-31 09:55] VITALS: BP 141/90
== END 2018-03-31 12:20 | disposition home or self-care (01) | DRG 754 ==
LOC: EMEROO 16:18 → 1ANU 23:47 → SUATTDRO 23:47 → 1ANU 23:57
PROVIDERS: ADMIT General Practice; ATTEND Psychiatry & Neurology Forensic Psychiatry

== ENCOUNTER 2018-05-01 13:15 | Inpatient (IN) ==
--- NOTE | 2018-05-01 13:24 | Emergency Department Note ---
Disposition Clinical Impression: Suicidal ideation Disposition: Admitted As Inpatient Condition: Fair Time of Disposition: 19:16 Psych HPI - General Chief Complaint: ED Psychiatric Symptoms Stated Complaint: PSYCH Time Seen by Provider: 05/01/18 13:17 Source: EMS Mode of arrival: EMS Limitations: no limitations Nursing Notes Reviewed: Yes Vital Signs Reviewed: Yes - History of Present Illness HPI Narrative: 42-year-old male presented to the emergency department with suicidal ideations. Patient does have history of developmental delay as well as a psychiatric history with recent admission to for psych evaluation. He is restarted on his medications at that time and was discharged on March 31. He was said to have follow-up with his psychiatrist on April 29 but did not make that appointment because patient stated that he forgot. His medications were also not reported to his house he said he has not been continuing his medications including Remeron and Risperdal. Patient states he has not eaten proximally 7 days due to him being worried about his suicidal ideations and not taking his medications. Patient states today he was in the park and he is having thoughts with the double was telling him to go kill himself. He has not came up with the plan at this time. No homicidal ideations. He had no access to any weapons. Patient otherwise is having no complaints including no recent falls, head trauma, blurry vision, headache, neck pain, fevers, chills, nausea, vomiting, chest pain, shortness of breath, back pain, pain or tingling down the arms or legs, abdominal pain, change in bowel movements, pain with urination. - Related Data Previous Rx's Medication Instructions Recorded Mirtazapine [Remeron] 7.5 mg PO HS 30 Days #30 tablet 03/31/18 risperiDONE [RisperDAL] 1 mg PO BID 30 Days #60 tablet 03/31/18 Allergies Allergy/AdvReac Type Severity Reaction Status Date / Time No Known Allergies Allergy Verified 03/22/17 13:49 Review of Systems: 10 point review of systems done and negative unless otherwise stated in the history of present illness. All systems ED: reviewed and negative except as stated. Review of Systems: As Per HPI Past Medical History - Past Medical History Attestation: Yes The following information was validated with the patient. Source: patient Medical history: Reports: other Surgical history: Reports: cholecystectomy, other Psychiatric history: Reports: depression, previous psychiatric hospitalization - Social History Smoking Status: Current every day smoker Smokeless Tobacco Status: No Alcohol use: Reports: none Drug use: Reports: none Physical Exam - General Limitations: no limitations General appearance: alert - Head Head exam: atraumatic, normocephalic, normal inspection - Eye Eye exam: Present: normal appearance, PERRL, EOMI - ENT ENT exam: normal exam, normal oropharynx, mucous membranes moist - Neck Neck exam: Present: normal inspection, full ROM, trachea midline - Chest Chest inspection: Present: normal inspection, symmetric chest wall rise - Respiratory Respiratory exam: Present: normal lung sounds bilaterally. Absent: respiratory distress - Cardiovascular Cardiovascular exam: Present: regular rate, normal rhythm, normal heart sounds - Abdominal Exam Abdominal exam: Present: soft, Non-Tender, normal bowel sounds. Absent: tenderness, distention, guarding, rebound, rigidity - Extremities Exam Extremities exam: Present: normal inspection, full ROM. Absent: tenderness, pedal edema - Expanded Lower Extremity Exam Neurovascular/Tendon exam: Present: normal capillary refill. Absent: pulse deficit, motor deficit, sensory deficit, tendon deficit - Back Exam Back exam: Present: normal inspection, full ROM. Absent: tenderness, CVA tenderness (R), CVA tenderness (L) - Neurological Exam Neurological exam: Present: alert, oriented X3, CN II-XII intact, normal gait. Absent: motor sensory deficit - Psychiatric Psychiatric exam: Present: normal affect, normal mood, suicidal ideation. Absent: anxious, flat affect, manic, homicidal ideation - Skin Skin exam: Present: warm, dry, intact, normal color Course Course Narrative: 42-year-old male presented here with suicidal ideation she is still having suicidal ideations but does not plan is no homicidal ideations IS going to removed patient is an abnormal psych medical clearance including CBC, BMP, hepatic panel, TSH, urinalysis as well as acetaminophen and salicylate level and ethanol level. Patient no recent fall CT head is not needed at this time. He is having no hallucinations. No other imaging is needed. We will have psych evaluate patient once patient is medically cleared. Patient is okay with this plan. - Reevaluation(s) Reevaluation #1: Labs came back with no acute abnormalities. Urine was dirty but no signs of infection. He was negative for salicylates as well as urine drug screen and ethanol and acetaminophen. Patient is medically cleared from a medical standpoint. We will contact psych for further evaluation. Time: 15:54 Vital Signs Temperature 97.5 F L 05/01/18 13:18 Pulse Rate 86 05/01/18 13:18 Respiratory Rate 18 05/01/18 13:18 Blood Pressure 112/65 05/01/18 13:18 O2 Sat by Pulse Oximetry 94 05/01/18 13:18 Temperature 97.5 F L 05/01/18 13:18 Pulse Rate 86 05/01/18 13:18 Respiratory Rate 18 05/01/18 13:18 Blood Pressure 112/65 05/01/18 13:18 O2 Sat by Pulse Oximetry 94 05/01/18 13:18 Oxygen Delivery Oxygen Delivery Room Air Psych - MDM Narrative Medical decision making narrative: 42-year-old male presented to the emergency department with suicidal ideations. Patient was medically cleared as all labs came back normal.1A did come and evaluate the patient did recommend inpatient evaluation. Patient is going to be admitted to our facility For further evaluation. Patient's okay with this plan. Patient is pink slipped and ready to be transferred to the psychiatric floor. Patient is currently stable at this time. - Lab Data Result diagrams: 05/01/18 13:34 05/01/18 13:34 Lab Results 05/01/18 05/01/18 05/01/18 Range/Units 13:31 13:31 13:34 WBC 4.6 (4.3-11.1) K/mcL RBC 4.87 (4.19-5.50) M/mcL Hgb 15.1 (12.9-16.9) g/dL Hct 44.3 (37.5-50.1) % MCV 91.0 (83.0-100.0) fL MCH 31.0 (28.0-33.3) pg MCHC 34.1 (31.6-35.5) g/dL RDW 13.6 (11.5-14.5) % Plt Count 176 (140-400) K/mcL MPV 13.0 H (9.4-12.4) fL Immature Gran % 0.2 (0-4) % Seg Neutrophils % 69.1 % Lymphocytes % 16.6 % Monocytes % 10.9 % Eosinophils % 2.8 % Basophils % 0.4 % Neutrophils # 3.2 (1.6-8.9) K/mcL Lymphocytes # 0.8 (0.6-4.6) K/mcL Monocytes # 0.5 (0.0-1.3) K/mcL Eosinophils # 0.1 (0.0-0.6) K/mcL Basophils # 0.0 (0.0-0.2) K/mcL Sodium (136-145) mEq/L Potassium (3.5-5.1) mEq/L Chloride (98-107) mEq/L Carbon Dioxide (23-29) mEq/L BUN (6-20) mg/dL Creatinine (0.70-1.30) mg/dL Est GFR ( Amer) (> 60) Est GFR (Non-Af Amer) (> 60) BUN/Creatinine Ratio (6-26) Glucose (70-105) mg/dL Calculated Osmolality (280-300) Calcium (8.6-10.3) mg/dL Total Bilirubin (0.3-1.0) mg/dL Direct Bilirubin (0.0-0.2) mg/dL Indirect Bilirubin (0.0-1.2) mg/dL AST (13-39) Units/L ALT (7-52) Units/L Alkaline Phosphatase (34-104) Units/L Serum Total Protein (6.4-8.9) g/dL Albumin (3.5-5.7) g/dL Globulin (2.4-3.5) g/dL Albumin/Globulin Ratio (1.1-2.2) TSH (0.340-5.600) mcIU/mL Urine Color Dark Yellow (Yellow) Urine Clarity Cloudy A (Clear) Urine pH 5.5 (5.0-8.0) pH Units Ur Specific [place] > 1.030 H (1.010-1.025) Urine Protein 30 H (Neg-Trace) mg/dL Urine Glucose (UA) Normal (Normal) mg/dL Urine Ketones 15 H (Negative) mg/dL Urine Blood Negative (Negative) Urine Nitrite Negative (Negative) Urine Bilirubin Small H (Negative) Urine Urobilinogen Normal (Normal) mg/dL Ur Leukocyte Esterase Trace H (Negative) Urine Microscopic RBC 0-3 (0-3) per hpf Urine Microscopic WBC 3-5 H (0-3) per hpf Ur Squamous Epith Cells Many H (None-Few) per lpf Amorphous Sediment Few (Few) Urine Bacteria None Seen (None-Few) per hpf Hyaline Casts Few (None-Few) per lpf Urine Mucus Many H (Few) Salicylates (15.0-30.0) mg/dL Urine Opiates Screen Negative (Srnsdk=445) ng/mL Acetaminophen (10-20) mcg/mL Ur Barbiturates Screen Negative (Yfnqbl=936) ng/mL Ur Phencyclidine Scrn Negative (Cutoff=25) ng/mL Ur Amphetamines Screen Negative (Xyruuo=9080) ng/mL U Benzodiazepines Scrn Negative (Opqlje=078) ng/mL Urine Cocaine Screen Negative (Cutoff= 300) ng/mL U Marijuana (THC) Screen Negative (Cutoff = 50) ng/mL Ethyl Alcohol (Less than 10) mg/dL 05/01/18 Range/Units 13:34 WBC (4.3-11.1) K/mcL RBC (4.19-5.50) M/mcL Hgb (12.9-16.9) g/dL Hct (37.5-50.1) % MCV (83.0-100.0) fL MCH (28.0-33.3) pg MCHC (31.6-35.5) g/dL RDW (11.5-14.5) % Plt Count (140-400) K/mcL MPV (9.4-12.4) fL Immature Gran % (0-4) % Seg Neutrophils % % Lymphocytes % % Monocytes % % Eosinophils % % Basophils % % Neutrophils # (1.6-8.9) K/mcL Lymphocytes # (0.6-4.6) K/mcL Monocytes # (0.0-1.3) K/mcL Eosinophils # (0.0-0.6) K/mcL Basophils # (0.0-0.2) K/mcL Sodium 139 (136-145) mEq/L Potassium 3.6 (3.5-5.1) mEq/L Chloride 108 H (98-107) mEq/L Carbon Dioxide 23 (23-29) mEq/L BUN 17 (6-20) mg/dL Creatinine 1.05 (0.70-1.30) mg/dL Est GFR ( Amer) > 60 (> 60) Est GFR (Non-Af Amer) > 60 (> 60) BUN/Creatinine Ratio 16 (6-26) Glucose 84 (70-105) mg/dL Calculated Osmolality 289 (280-300) Calcium 9.5 (8.6-10.3) mg/dL Total Bilirubin 0.6 (0.3-1.0) mg/dL Direct Bilirubin 0.2 (0.0-0.2) mg/dL Indirect Bilirubin 0.4 (0.0-1.2) mg/dL AST 13 (13-39) Units/L ALT 10 (7-52) Units/L Alkaline Phosphatase 57 (34-104) Units/L Serum Total Protein 6.9 (6.4-8.9) g/dL Albumin 4.3 (3.5-5.7) g/dL Globulin 2.6 (2.4-3.5) g/dL Albumin/Globulin Ratio 1.7 (1.1-2.2) TSH 3.169 (0.340-5.600) mcIU/mL Urine Color (Yellow) Urine Clarity (Clear) Urine pH (5.0-8.0) pH Units Ur Specific [place] (1.010-1.025) Urine Protein (Neg-Trace) mg/dL Urine Glucose (UA) (Normal) mg/dL Urine Ketones (Negative) mg/dL Urine Blood (Negative) Urine Nitrite (Negative) Urine Bilirubin (Negative) Urine Urobilinogen (Normal) mg/dL Ur Leukocyte Esterase (Negative) Urine Microscopic RBC (0-3) per hpf Urine Microscopic WBC (0-3) per hpf Ur Squamous Epith Cells (None-Few) per lpf Amorphous Sediment (Few) Urine Bacteria (None-Few) per hpf Hyaline Casts (None-Few) per lpf Urine Mucus (Few) Salicylates < 2.5 L (15.0-30.0) mg/dL Urine Opiates Screen (Mcrypn=455) ng/mL Acetaminophen < 10 L (10-20) mcg/mL Ur Barbiturates Screen (Ortxjf=779) ng/mL Ur Phencyclidine Scrn (Cutoff=25) ng/mL Ur Amphetamines Screen (Emvpbk=0886) ng/mL U Benzodiazepines Scrn (Fxdnuz=702) ng/mL Urine Cocaine Screen (Cutoff= 300) ng/mL U Marijuana (THC) Screen (Cutoff = 50) ng/mL Ethyl Alcohol < 10 (Less than 10) mg/dL Psychiatric Medical Clearance - Medical Clearance Checklist Medical History: No Social History Section defined Current Vitals: Last Vital Signs Temp 97.5 F L 05/01/18 13:18 Pulse 86 05/01/18 13:18 Resp 18 05/01/18 13:18 BP 112/65 05/01/18 13:18 Pulse Ox 94 05/01/18 13:18 Psychiatric Lab Panel: Drug Levels and Toxicity 05/01/18 05/01/18 13:31 13:34 Urine Opiates Screen Negative Acetaminophen < 10 L Ur Barbiturates Screen Negative Ur Phencyclidine Scrn Negative Ur Amphetamines Screen Negative U Benzodiazepines Scrn Negative Urine Cocaine Screen Negative U Marijuana (THC) Screen Negative Ethyl Alcohol < 10 Abnormal Labs: Abnormal lab results MPV 13.0 fL (9.4-12.4) H 05/01/18 13:34 Chloride 108 mEq/L (98-107) H 05/01/18 13:34 Urine Clarity Cloudy (Clear) A 05/01/18 13:31 Ur Specific [place] > 1.030 (1.010-1.025) H 05/01/18 13:31 Urine Protein 30 mg/dL (Neg-Trace) H 05/01/18 13:31 Urine Ketones 15 mg/dL (Negative) H 05/01/18 13:31 Urine Bilirubin Small (Negative) H 05/01/18 13:31 Ur Leukocyte Esterase Trace (Negative) H 05/01/18 13:31 Urine Microscopic WBC 3-5 per hpf (0-3) H 05/01/18 13:31 Ur Squamous Epith Cells Many per lpf (None-Few) H 05/01/18 13:31 Urine Mucus Many (Few) H 05/01/18 13:31 Salicylates < 2.5 mg/dL (15.0-30.0) L 05/01/18 13:34 Acetaminophen < 10 mcg/mL (10-20) L 05/01/18 13:34 Statement of Medical Clearance: I have evaluated the patient, reviewed diagnostic information, and certify that the patient's medical condition is sufficiently stable that transfer to the psychiatric unit does not pose a significant risk of deterioration.
--- NOTE | 2018-05-01 13:30 | Emergency Department Note ---
Disposition Clinical Impression: Suicidal ideation Disposition: Still a Patient Condition: Fair Forms: ED Satisfaction Letter General Adult HPI - General Chief complaint: ED Psychiatric Symptoms Stated complaint: PSYCH Time Seen by Provider: 05/01/18 13:17 Source: EMS Mode of arrival: EMS Limitations: no limitations - History of Present Illness Pain Scale: 0 - Related Data Previous Rx's Medication Instructions Recorded Mirtazapine [Remeron] 7.5 mg PO HS 30 Days #30 tablet 03/31/18 risperiDONE [RisperDAL] 1 mg PO BID 30 Days #60 tablet 03/31/18 Allergies Allergy/AdvReac Type Severity Reaction Status Date / Time No Known Allergies Allergy Verified 03/22/17 13:49 Past Medical History - Past Medical History Medical history: Reports: other Surgical history: Reports: cholecystectomy, other Psychiatric history: Reports: depression, previous psychiatric hospitalization - Social History Smoking Status: Current every day smoker Smokeless Tobacco Status: No Alcohol use: Reports: none Drug use: Reports: none Physical Exam - General Limitations: no limitations General appearance: alert Course Vital Signs Temperature 97.5 F L 05/01/18 13:18 Pulse Rate 86 05/01/18 13:18 Respiratory Rate 18 05/01/18 13:18 Blood Pressure 112/65 05/01/18 13:18 O2 Sat by Pulse Oximetry 94 05/01/18 13:18 Temperature 97.5 F L 05/01/18 13:18 Pulse Rate 86 05/01/18 13:18 Respiratory Rate 18 05/01/18 13:18 Blood Pressure 112/65 05/01/18 13:18 O2 Sat by Pulse Oximetry 94 05/01/18 13:18 Oxygen Delivery Oxygen Delivery Room Air Attestation Statement - Attestation Attestation: I examined this patient and my medical decision-making was reviewed with the Resident Physician. I agree with the documented findings, disposition and treatment plan as described except to the extent set forth below. 42-year-old male was brought in via EMS for suicidal ideation. Patient was found in a local park and apparently was having suicidal thoughts was brought into the ER for evaluation. He has a history of a psychiatric problems in the past. Patient was in the hospital last month. Has not been taking his meds for the last month. He does not have a current plan but states he is suicidal. Denies any homicidal thoughts. We will check psych labs and consult with psychiatry. Disposition pending at this time
[2018-05-01 13:40] LABS: Bilirubin,Urine Small (Negative); Blood,Urine Negative (Negative); Clarity,Urine Cloudy (Clear); Color,Urine Dark Yellow (Yellow); Glucose,Urine (UA) Normal (Normal); Ketones,Urine 15 mg/dL (Negative); Leukocyte Esterase,Urine Trace (Negative); Nitrite,Urine Negative (Negative); PH,Urine 5.5 pH Units (5.0-8.0); Protein,Urine 30 mg/dL (Neg-Trace); Specific Gravity,Urine > 1.030 (1.010-1.025); Urobilinogen,Urine Normal (Normal)
[2018-05-01 13:42] LABS: Bacteria,Urine None Seen per hpf (None-Few); Hyaline Casts,Urine Few per lpf (None-Few); RBC,Urine 0-3 per hpf (0-3); Squamous Epithelial Cell,Urine Many per lpf (None-Few)
[2018-05-01 13:53] LABS: Amphetamine Screen,Urine Negative ng/mL (Cutoff=1000); Barbiturate Screen,Urine Negative ng/mL (Cutoff=200); Benzodiazepines Screen,Urine Negative ng/mL (Cutoff=200); Cannabinoid Screen,Urine Negative ng/mL (Cutoff = 50); Cocaine Screen,Urine Negative ng/mL (Cutoff= 300); Opiate Screen,Urine Negative ng/mL (Cutoff=300); Phencyclidine Screen,Urine Negative ng/mL (Cutoff=25)
[2018-05-01 14:04] LABS: Mucus,Urine Many (Few)
[2018-05-01 14:05] LABS: Amorphous Sediment,Urine Few (Few)
[2018-05-01 15:10] LABS: Basophils % 0.4 %; Eosinophils # 0.1 K/mcL (0.0-0.6); Eosinophils % 2.8 %; Hematocrit 44.3 % (37.5-50.1); Hemoglobin 15.1 g/dL (12.9-16.9); Immature Granulocytes % 0.2 % (0-4); Lymphocytes # 0.8 K/mcL (0.6-4.6); Lymphocytes % 16.6 %; Mean Corpuscular HGB Conc 34.1 g/dL (31.6-35.5); Monocytes # 0.5 K/mcL (0.0-1.3); Monocytes % 10.9 %; Neutrophils # 3.2 K/mcL (1.6-8.9); Platelet Count 176 K/mcL (140-400); Red Blood Count 4.87 M/mcL (4.19-5.50); Red Cell Distribution Width 13.6 % (11.5-14.5); Segmented Neutrophils % 69.1 %
[2018-05-01 15:22] LABS: Acetaminophen < 10 mcg/mL (10-20); Alanine Aminotransferase 10 Units/L (7-52); Albumin 4.3 g/dL (3.5-5.7); Albumin/Globulin Ratio 1.7 (1.1-2.2); Alkaline Phosphatase 57 Units/L (34-104); Aspartate Amino Transferase 13 Units/L (13-39); BUN/Creatinine Ratio 16 (6-26); Bilirubin,Direct 0.2 mg/dL (0.0-0.2); Bilirubin,Indirect 0.4 mg/dL (0.0-1.2); Bilirubin,Total 0.6 mg/dL (0.3-1.0); Blood Urea Nitrogen 17 mg/dL (6-20); Calcium 9.5 mg/dL (8.6-10.3); Carbon Dioxide 23 mEq/L (23-29); Chloride 108 mEq/L (98-107); Ethanol < 10 mg/dL (Less than 10); Globulin 2.6 g/dL (2.4-3.5); Glucose 84 mg/dL (70-105); Osmolality,Calculated 289 (280-300); Potassium 3.6 mEq/L (3.5-5.1); Salicylate < 2.5 mg/dL (15.0-30.0); Sodium 139 mEq/L (136-145); Total Protein 6.9 g/dL (6.4-8.9); eGFR For African Americans > 60 (> 60); eGFR For Non-African Americans > 60 (> 60)
[2018-05-01 15:35] LABS: Thyroid Stimulating Hormone 3.169 mcIU/mL (0.340-5.600)
[2018-05-01] MEDS ORDERED: Acetaminophen 325 MG TABLET PO PRN (19:42)
[2018-05-01] MEDS ORDERED: Haloperidol Lactate 5 MG/ML VIAL IM PRN (19:42)
[2018-05-01] MEDS ORDERED: MOM Conc 10 ML UD.LIQ PO PRN (19:42)
[2018-05-01] MEDS ORDERED: *HR* LORazepam 2 MG/ML VIAL IM PRN (19:42)
[2018-05-01] MEDS ORDERED: Mag Hydrox/Al Hydrox/Simeth 30 ML UDC PO PRN (19:42)
[2018-05-01] MEDS ORDERED: Nicotine 2 MG GUM BC PRN (20:40)
[2018-05-01] MEDS: hydrOXYzine pamoate 25 MG CAPSULE PO PRN (21:52)
--- NOTE | 2018-05-02 11:45 | Psychiatry History & Physical ---
Date of Encounter: 05/02/18 Time of Encounter: 11:15 History of Present Illness Patient Stated Chief Complaint: i am suicidal because somebody was looking for me. Medicare Admission Attestation: For traditional Medicare patients the provided hospital inpatient services are reasonable and necessary and in the case of services not specified as inpatient -only under 42 CFR 419.22 (n), that they are appropriately provided as inpatient services in accordance 42 CFR 412.3. For Critical Access Hospital the patient may reasonably be expected to be discharged or transferred to a hospital within 96 hours after admission to the Critical Access Hospital. Admitted From: Emergency Dept Plans for Post Hospital Care: Home History of Present Illness: Mr. Valentine is a 42 year old male was bought by [employer] , i was in park and told somebody i will kill my self. Patient evaluated today , He is a 42 year old male, single, lives with mom, intellectually challenged, on SSI, with depression, denied h/o illict drug use, denied violence/incarceration, multiple inpatient hospitalizations most recent 03/25 at [facility], h/o medication and aftercare noncompliance CC I want to kill my self bc FBI is looking for me and i thought i was going away and i did not wanted to go and i thought i would kill my self and blew my brains out, HPI Patient appeared, disheveled, malodorous, with subcutaneous lesions and scratch bull all over his body, repeatedly fidgety and scratching himself through out his evaluation. He described the lesions as multiple tumors which were present at . Patient was noted delay in his response, acting bizarre and intermittently evasive. He is unable to give details of his symptoms but stated he was going to kill himself, he wanted to blow his brain , he is hearing voices does not know what they are saying and is paranoid about fbi and other people follow him and watch him. He is a poor historian and unable to give much information on his own , will answer in short sentence. he admits being depress, sad, hearing voices and paranoid, he remains suicidal with plan. Past psych in treatment for several years , non compliance and multiple inpatient , last one in 03/25. Substance use denies , tox negative. cigarretes 2-3 cig / day Past Med Surg Social Fam HX - Past Medical History Medical history: other (neurofibramatosis) - Past Surgical History Surgical History: cholecystectomy, other - Social History Smoking Status: Current every day smoker Smokeless Tobacco Status: No Alcohol use: none Drug use: none Occupational status: disabled Current living situation: Home, With Family Activity Level: Independent ambulation Recent Out of Country Travel Within the Last 8 Weeks: No Exposure or Possible Exposure to Illness During Travel: No Medications & Allergies No Known Home Drugs 05/02/18 [History] 3 Allergy/AdvReac Type Severity Reaction Status Date / Time No Known Allergies Allergy Verified 03/22/17 13:49 Review of Systems Constitutional: Denies: fever, chills, weakness, weight change Eyes: Denies: eye pain, vision change Ears, Nose, Throat: Denies: ear pain, throat pain, dental pain, hearing loss, congestion Cardiovascular: Denies: chest pain, palpitations, dyspnea on exertion Respiratory: Denies: cough, dyspnea, wheezes Gastrointestinal: Denies: abdominal pain, nausea, vomiting, diarrhea, constipation Genitourinary male: Denies: urgency, dysuria, frequency, genital lesions Musculoskeletal: Denies: joint swelling, joint pain Integumentary: Denies: rash, lesions, pruritus Neurological: Denies: headache, weakness, numbness, memory loss Psychiatric: Reports: depression, anxiety, abnormal sleep pattern, suicidal ideation, change in appetite, auditory hallucinations, difficulty concentrating , hopelessness Endocrine: Denies: fatigue, heat or cold intolerance Hematologic/Lymphatic: Denies: easy bruising, lymphadenopathy Allergic/Immunologic: Denies: urticaria, itchy eyes Exam - HEENT Head exam IM: Present: atraumatic Eye exam IM: Present: EOMI, normal appearance, PERRL ENT exam IM: Present: normal exam - Neurological Neurological exam: Present: CN II-XII intact, alert - Respiratory Respiratory exam IM: Present: CTAB - GI/Abdominal GI/Abdominal exam IM: Present: bruit - Extremities Extremities exam IM: Present: full ROM - Skin Skin exam IM: Present: dry, warm - Constitutional Vitals: Temp Pulse Resp BP Pulse Ox 98.4 F 57 16 124/72 94 05/02/18 08:46 05/02/18 08:46 05/02/18 08:46 05/02/18 08:46 05/01/18 13:18 General appearance: unkempt, disheveled, malodorous, thin - Musculoskeletal Gait: slow Station: other Strength & Tone: normal for patient - Psychiatric Patient Orientation: Yes Person, Yes Time, Yes Place Level of alertness: Alert Behavior: cooperative, guarded, withdrawn Psychomotor activity: Slowed Eye Contact: Minimal Contact Mood Description: Depressed Affect description: blunted Speech Volume: Soft/Quiet Speech pattern: slowed Language & Vocabulary: limited Thought Process: [place] Thought Content: Yes Suicidal ideation, Yes Preoccupation, Yes Paranoid delusion Perceptual Disturbances: Yes Auditory hallucinations Attention Span Ability: Unable to Sustain Attention Memory Description: Grossly Intact Patient Reliability: Questionable Historian Intelligence Estimate: Below Average Insight: None Results - Labs Labs: Laboratory Last Values WBC 4.6 K/mcL (4.3-11.1) 05/01/18 13:34 RBC 4.87 M/mcL (4.19-5.50) 05/01/18 13:34 Hgb 15.1 g/dL (12.9-16.9) 05/01/18 13:34 Hct 44.3 % (37.5-50.1) 05/01/18 13:34 MCV 91.0 fL (83.0-100.0) 05/01/18 13:34 MCH 31.0 pg (28.0-33.3) 05/01/18 13:34 MCHC 34.1 g/dL (31.6-35.5) 05/01/18 13:34 RDW 13.6 % (11.5-14.5) 05/01/18 13:34 Plt Count 176 K/mcL (140-400) 05/01/18 13:34 MPV 13.0 fL (9.4-12.4) H 05/01/18 13:34 Immature Gran % 0.2 % (0-4) 05/01/18 13:34 Seg Neutrophils % 69.1 % 05/01/18 13:34 Lymphocytes % 16.6 % 05/01/18 13:34 Monocytes % 10.9 % 05/01/18 13:34 Eosinophils % 2.8 % 05/01/18 13:34 Basophils % 0.4 % 05/01/18 13:34 Neutrophils # 3.2 K/mcL (1.6-8.9) 05/01/18 13:34 Lymphocytes # 0.8 K/mcL (0.6-4.6) 05/01/18 13:34 Monocytes # 0.5 K/mcL (0.0-1.3) 05/01/18 13:34 Eosinophils # 0.1 K/mcL (0.0-0.6) 05/01/18 13:34 Basophils # 0.0 K/mcL (0.0-0.2) 05/01/18 13:34 Sodium 139 mEq/L (136-145) 05/01/18 13:34 Potassium 3.6 mEq/L (3.5-5.1) 05/01/18 13:34 Chloride 108 mEq/L (98-107) H 05/01/18 13:34 Carbon Dioxide 23 mEq/L (23-29) 05/01/18 13:34 BUN 17 mg/dL (6-20) 05/01/18 13:34 Creatinine 1.05 mg/dL (0.70-1.30) 05/01/18 13:34 Est GFR ( Amer) > 60 (> 60) 05/01/18 13:34 Est GFR (Non-Af Amer) > 60 (> 60) 05/01/18 13:34 BUN/Creatinine Ratio 16 (6-26) 05/01/18 13:34 Glucose 84 mg/dL (70-105) 05/01/18 13:34 Calculated Osmolality 289 (280-300) 05/01/18 13:34 Calcium 9.5 mg/dL (8.6-10.3) 05/01/18 13:34 Total Bilirubin 0.6 mg/dL (0.3-1.0) 05/01/18 13:34 Direct Bilirubin 0.2 mg/dL (0.0-0.2) 05/01/18 13:34 Indirect Bilirubin 0.4 mg/dL (0.0-1.2) 05/01/18 13:34 AST 13 Units/L (13-39) 05/01/18 13:34 ALT 10 Units/L (7-52) 05/01/18 13:34 Alkaline Phosphatase 57 Units/L (34-104) 05/01/18 13:34 Serum Total Protein 6.9 g/dL (6.4-8.9) 05/01/18 13:34 Albumin 4.3 g/dL (3.5-5.7) 05/01/18 13:34 Globulin 2.6 g/dL (2.4-3.5) 05/01/18 13:34 Albumin/Globulin Ratio 1.7 (1.1-2.2) 05/01/18 13:34 TSH 3.169 mcIU/mL (0.340-5.600) 05/01/18 13:34 Urine Color Dark Yellow (Yellow) 05/01/18 13:31 Urine Clarity Cloudy (Clear) A 05/01/18 13:31 Urine pH 5.5 pH Units (5.0-8.0) 05/01/18 13:31 Ur Specific [place] > 1.030 (1.010-1.025) H 05/01/18 13:31 Urine Protein 30 mg/dL (Neg-Trace) H 05/01/18 13:31 Urine Glucose (UA) Normal mg/dL (Normal) 05/01/18 13:31 Urine Ketones 15 mg/dL (Negative) H 05/01/18 13:31 Urine Blood Negative (Negative) 05/01/18 13:31 Urine Nitrite Negative (Negative) 05/01/18 13:31 Urine Bilirubin Small (Negative) H 05/01/18 13:31 Urine Urobilinogen Normal mg/dL (Normal) 05/01/18 13:31 Ur Leukocyte Esterase Trace (Negative) H 05/01/18 13:31 Urine Microscopic RBC 0-3 per hpf (0-3) 05/01/18 13:31 Urine Microscopic WBC 3-5 per hpf (0-3) H 05/01/18 13:31 Ur Squamous Epith Cells Many per lpf (None-Few) H 05/01/18 13:31 Amorphous Sediment Few (Few) 05/01/18 13:31 Urine Bacteria None Seen per hpf (None-Few) 05/01/18 13:31 Hyaline Casts Few per lpf (None-Few) 05/01/18 13:31 Urine Mucus Many (Few) H 05/01/18 13:31 Salicylates < 2.5 mg/dL (15.0-30.0) L 05/01/18 13:34 Urine Opiates Screen Negative ng/mL (Aennia=292) 05/01/18 13:31 Acetaminophen < 10 mcg/mL (10-20) L 05/01/18 13:34 Ur Barbiturates Screen Negative ng/mL (Faxrht=137) 05/01/18 13:31 Ur Phencyclidine Scrn Negative ng/mL (Cutoff=25) 05/01/18 13:31 Ur Amphetamines Screen Negative ng/mL (Cttwyq=6765) 05/01/18 13:31 U Benzodiazepines Scrn Negative ng/mL (Gheueh=071) 05/01/18 13:31 Urine Cocaine Screen Negative ng/mL (Cutoff= 300) 05/01/18 13:31 U Marijuana (THC) Screen Negative ng/mL (Cutoff = 50) 05/01/18 13:31 Ethyl Alcohol < 10 mg/dL (Less than 10) 05/01/18 13:34 Assessment and Plan (1) Suicidal ideation Current visit: No Status: Acute Plan: Admit inpatient for safety and stabilization, Close observation, Suicide Precautions per unit protocol, Encourage participation in unit milieu, Group Therapy, Monitor sleep, Monitor appetite, Family/Supportive other meeting Additional Plan: inpatient stabilization , continuos and close observation. start medication and counselling. Risks, benefits, side effects, alternatives discussed w/pt: Yes Patient agreeable to treatment: Yes Plans for Post Hospital Care: at Home (2) Psychosis Current visit: No Status: Acute Plan: Admit inpatient for safety and stabilization, Close observation, Suicide Precautions per unit protocol, Encourage participation in unit milieu, Group Therapy, Monitor sleep, Monitor appetite, Family/Supportive other meeting Risks, benefits, side effects, alternatives discussed w/pt: Yes Patient agreeable to treatment: Yes Plans for Post Hospital Care: at Home Estimated Length of Stay (Days): 5 Qualifiers: Psychosis type: unspecified psychosis type Qualified Code(s): F29 - Unspecified psychosis not due to a substance or known physiological condition (3) Depression Current visit: No Status: Acute Plan: Admit inpatient for safety and stabilization, Close observation, Suicide Precautions per unit protocol, Encourage participation in unit milieu, Monitor sleep, Monitor appetite, Family/Supportive other meeting Additional Plan: start medication and close observation. 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
[2018-05-02] MEDS: hydrOXYzine pamoate 25 MG CAPSULE PO PRN (17:45)
[2018-05-02] MEDS: *HR* LORazepam 1 MG TABLET PO PRN (17:45)
[2018-05-02] MEDS: Mirtazapine 15 MG TABLET PO SCH (21:38)
[2018-05-02] MEDS: risperiDONE 0.25 MG TABLET PO SCH (21:38)
[2018-05-03] MEDS: risperiDONE 0.25 MG TABLET PO SCH ×2 (09:32→20:34)
--- NOTE | 2018-05-03 11:25 | Psychiatry Progress Note ---
Date of Encounter: 05/03/18 Time of Encounter: 11:10 Subjective Interval history: Patient seen today , case d/w treatment team , patient remains preoccupied and had showered today. He denies suicidal ideation today but remains delusional and paranoid and internally preoccupied. admits being feeling sad , about FBI after him and will take him away , he he denies any a/v hallucinations at present. he has been eating better and slept good last night. he denies side effects , will get HGA1C , other labs reviewed. he is medically stable. Review of Systems Psychiatric: Reports: depression, anxiety, abnormal sleep pattern, suicidal ideation, change in appetite, auditory hallucinations, difficulty concentrating , hopelessness Results - Vital Signs Vital Signs: Temp Pulse Resp BP Pulse Ox 99 F 72 16 134/94 94 05/03/18 09:00 05/03/18 09:00 05/03/18 09:00 05/03/18 09:00 05/01/18 13:18 Assessment and Plan (1) Suicidal ideation Current visit: No Status: Acute Risks, benefits, side effects, alternatives discussed w/pt: Yes Patient agreeable to treatment: Yes (2) Psychosis Current visit: No Status: Acute Risks, benefits, side effects, alternatives discussed w/pt: Yes Patient agreeable to treatment: Yes Qualifiers: Psychosis type: unspecified psychosis type Qualified Code(s): F29 - Unspecified psychosis not due to a substance or known physiological condition (3) Depression Current visit: No Status: Acute Risks, benefits, side effects, alternatives discussed w/pt: Yes Patient agreeable to treatment: Yes Qualifiers: Depression Type: unspecified Qualified Code(s): F32.9 - Major depressive disorder, single episode, unspecified (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 You will also be seeing Agustin MCKEON on at 3:30pm for primary care and medication mgt. Please bring photo ID and insuance card to appointment.) Psychiatry Exam - Constitutional Vitals: Temp Pulse Resp BP Pulse Ox 99 F 72 16 134/94 94 05/03/18 09:00 05/03/18 09:00 05/03/18 09:00 05/03/18 09:00 05/01/18 13:18 General appearance: average - Musculoskeletal Gait: slow Station: other Strength & Tone: normal for patient - Psychiatric Patient Orientation: Yes Person, Yes Time, Yes Place Level of alertness: Alert Behavior: cooperative, guarded, withdrawn Psychomotor activity: Slowed Eye Contact: Minimal Contact Mood Description: Depressed Affect description: blunted Speech Volume: Normal Speech pattern: slowed Language & Vocabulary: limited Thought Process: [place] Thought Content: Yes Preoccupation, Yes Paranoid delusion, Yes Poverty of Content Perceptual Disturbances: Yes Reacting to internal stimuli Attention Span Ability: Unable to Sustain Attention Memory Description: Grossly Intact Patient Reliability: Questionable Historian Fund of knowledge: Yes below average Intelligence Estimate: Below Average Judgment: Limited Insight: Minimal
[2018-05-03] MEDS ORDERED: traZODone 50 MG TABLET PO PRN (11:53)
[2018-05-03 12:00] LABS: Estimated Average Glucose 91 mg/dl; Hemoglobin A1C 4.8 %
[2018-05-03] MEDS: *HR* LORazepam 1 MG TABLET PO PRN (12:25)
[2018-05-03] MEDS: Mirtazapine 15 MG TABLET PO SCH (20:34)
[2018-05-04] MEDS: risperiDONE 0.25 MG TABLET PO SCH (08:44)
--- NOTE | 2018-05-04 12:39 | Psychiatry Progress Note ---
Date of Encounter: 05/04/18 Time of Encounter: 12:07 Subjective Interval history: Patient seen today , case d/w treatment team as per aids social worker patient was not taking any medications since discharge as they were not delivered to him and he detoriated and came too inpatient. he is smiling today and is compliant with medication , denies suicidal ideation , voices are there but not as much , he has been internally preoccupied and has concrete thought process, he at present needs stabilization , as still some psychosis will increase risperdL TO 1 MG BID and start discharge planning. Review of Systems Psychiatric: Reports: depression, anxiety, abnormal sleep pattern, suicidal ideation, change in appetite, auditory hallucinations, difficulty concentrating , hopelessness Results - Vital Signs Vital Signs: Temp Pulse Resp BP Pulse Ox 99.1 F 87 16 118/82 94 05/04/18 09:00 05/04/18 09:00 05/04/18 09:00 05/04/18 09:00 05/01/18 13:18 Assessment and Plan (1) Suicidal ideation Current visit: No Status: Acute Risks, benefits, side effects, alternatives discussed w/pt: Yes Patient agreeable to treatment: Yes (2) Psychosis Current visit: No Status: Acute Risks, benefits, side effects, alternatives discussed w/pt: Yes Patient agreeable to treatment: Yes Qualifiers: Psychosis type: unspecified psychosis type Qualified Code(s): F29 - Unspecified psychosis not due to a substance or known physiological condition (3) Depression Current visit: No Status: Acute Risks, benefits, side effects, alternatives discussed w/pt: Yes Patient agreeable to treatment: Yes Qualifiers: Depression Type: unspecified Qualified Code(s): F32.9 - Major depressive disorder, single episode, unspecified (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 You will also be seeing Agustin MCKEON on at 3:30pm for primary care and medication mgt. Please bring photo ID and insuance card to both appointments.) Psychiatry Exam - Constitutional Vitals: Temp Pulse Resp BP Pulse Ox 99.1 F 87 16 118/82 94 05/04/18 09:00 05/04/18 09:00 05/04/18 09:00 05/04/18 09:00 05/01/18 13:18 General appearance: unkempt, average - Musculoskeletal Gait: slow Station: other Strength & Tone: normal for patient - Psychiatric Patient Orientation: Yes Person, Yes Time, Yes Place Level of alertness: Alert Behavior: cooperative, distractible Psychomotor activity: Slowed Eye Contact: Maintains Eye Contact Mood Description: Euthymic/stable Affect description: blunted Speech Volume: Soft/Quiet Speech pattern: slowed Language & Vocabulary: limited Thought Process: [place] Thought Content: Yes Preoccupation Perceptual Disturbances: Yes Auditory hallucinations Memory Description: Grossly Intact Patient Reliability: Reliable Historian Fund of knowledge: Yes below average Judgment: Limited Insight: Minimal
[2018-05-04] MEDS: Mirtazapine 15 MG TABLET PO SCH (20:54)
[2018-05-04] MEDS: risperiDONE 1 MG TABLET PO SCH (20:55)
--- NOTE | 2018-05-05 08:33 | Psychiatry Progress Note ---
Date of Encounter: 05/05/18 Time of Encounter: 08:10 Subjective Interval history: Patient seen today , case d/w treatment team and patient is been cooperative, compliant with medications and psychosis improving. Patient states slept well, appetite is improving, paranoia improving about FBI and elie a/v hallucinations today, feels down but not like before. denies any side effects. will start discharge planning as not suicidal and psychosis improving. Review of Systems Psychiatric: Reports: depression, anxiety, change in appetite, difficulty concentrating Results - Vital Signs Vital Signs: Temp Pulse Resp BP Pulse Ox 99.0 F 71 16 132/94 94 05/04/18 20:20 05/04/18 20:20 05/04/18 20:20 05/04/18 20:20 05/01/18 13:18 Assessment and Plan (1) Suicidal ideation Current visit: No Status: Acute Risks, benefits, side effects, alternatives discussed w/pt: Yes Patient agreeable to treatment: Yes (2) Psychosis Current visit: No Status: Acute Risks, benefits, side effects, alternatives discussed w/pt: Yes Patient agreeable to treatment: Yes Qualifiers: Psychosis type: unspecified psychosis type Qualified Code(s): F29 - Unspecified psychosis not due to a substance or known physiological condition (3) Depression Current visit: No Status: Acute Risks, benefits, side effects, alternatives discussed w/pt: Yes Patient agreeable to treatment: Yes Qualifiers: Depression Type: unspecified Qualified Code(s): F32.9 - Major depressive disorder, single episode, unspecified (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 You will also be seeing Agustin MCKEON on at 3:30pm for primary care and medication mgt. Please bring photo ID and insuance card to both appointments.) Psychiatry Exam - Constitutional Vitals: Temp Pulse Resp BP Pulse Ox 99.0 F 71 16 132/94 94 05/04/18 20:20 05/04/18 20:20 05/04/18 20:20 05/04/18 20:20 05/01/18 13:18 General appearance: unkempt, average - Musculoskeletal Gait: slow Station: other Strength & Tone: normal for patient - Psychiatric Patient Orientation: Yes Person, Yes Time, Yes Place Level of alertness: Alert Behavior: cooperative, guarded Psychomotor activity: Slowed Eye Contact: Maintains Eye Contact Mood Description: Euthymic/stable Affect description: blunted Speech Volume: Soft/Quiet Speech pattern: slowed Language & Vocabulary: limited Thought Process: [place] Thought Content: Yes Preoccupation, Yes Paranoid delusion Attention Span Ability: Unable to Sustain Attention Memory Description: Grossly Intact Patient Reliability: Reliable Historian Fund of knowledge: Yes below average Intelligence Estimate: Below Average Judgment: Fair Insight: Partial
[2018-05-05] MEDS: risperiDONE 1 MG TABLET PO SCH ×2 (08:52→21:54)
[2018-05-05] MEDS: Mirtazapine 15 MG TABLET PO SCH (21:53)
[2018-05-05] MEDS: hydrOXYzine pamoate 25 MG CAPSULE PO PRN (21:54)
[2018-05-06] MEDS: risperiDONE 1 MG TABLET PO SCH (08:58)
[2018-05-06 09:56] VITALS: BP 121/80
--- NOTE | 2018-05-06 10:22 | Discharge Summary ---
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 Status: Acute (2) Neurofibromatosis Status: Chronic (3) Depression Status: Acute Qualifiers: Depression Type: unspecified Qualified Code(s): F32.9 - Major depressive disorder, single episode, unspecified Medications - Discharge Medications Prescriptions: Mirtazapine [Remeron] 7.5 mg PO HS #30 tablet risperiDONE [RisperDAL] 1 mg PO BID #60 tablet Mirtazapine [Remeron] 7.5 mg PO HS #30 tablet 05/06/18 [Rx] risperiDONE [RisperDAL] 1 mg PO BID #60 tablet 05/06/18 [Rx] 3 Allergy/AdvReac Type Severity Reaction Status Date / Time No Known Allergies Allergy Verified 03/22/17 13:49 Results Procedures and tests throughout hospitalization: Completed Lab Orders Category Date Time Status Hgb A1C Routine Lab 05/03/18 11:20 Completed Provider Date of admission: 05/01/18 19:04 Primary care physician: PCP NONE Discharging clinician: Aydee Driscoll Psychiatry Exam - Constitutional Vitals: Temp Pulse Resp BP Pulse Ox 98.2 F 80 16 121/80 94 05/06/18 09:00 05/06/18 09:00 05/06/18 09:00 05/06/18 09:00 05/01/18 13:18 General appearance: age & developmentally appropriate - Musculoskeletal Gait: normal Station: relaxed Strength & Tone: normal for patient - Psychiatric Patient Orientation: Yes Person, Yes Time, Yes Place Level of alertness: Alert Behavior: calm, cooperative Psychomotor activity: Abnormal movements Eye Contact: Maintains Eye Contact Mood Description: Euthymic/stable Affect description: congruent with mood, full range Speech Volume: Normal Speech pattern: normal rate, normal rhythm, normal tone, fluent, spontaneous Language & Vocabulary: limited Thought Process: Mchenry Thought Content: No Suicidal ideation, No Homicidal ideation Perceptual Disturbances: Yes Reacting to internal stimuli Attention Span Ability: Capable of Focused Attention Memory Description: Grossly Intact Patient Reliability: Questionable Historian Fund of knowledge: Yes below average Intelligence Estimate: Below Average Judgment: Fair Insight: Partial Hospital Course Hospital course: Mr. Valentine is a 42 year old male with neurofirbromatosis who was admitted secondary to SI. Previous admissions for psychosis secondary to medical condition. He was set up with home delivery of meds following his last admission but the home delivery service got his address wrong and he never received any meds. Needed admitted again for restabilization. SI was new for him this admission according to staff. However, he was started on Remeron and Risperdal with good results. Today he is denying SI and reporting he is ready for discharge. Lives with his mother and she is ready to have him come home. Remaining psychosis likely present at baseline due to placement of neurofibromas. Linked with services and has follow-up scheduled. Pleasant today. Smiling. Full affect. Future oriented. Denying any suicidal or homicidal ideation, plan, or intent. - Time Spent with Patient Total time spent providing and/or coordinating discharge services: Assessment and Plan - Patient/Caregiver Discharge Instructions Activity: resume usual activities as tolerated Diet: regular diet - Follow up Plan Follow up with: [facility] [Outside] - 05/10/18 1:00 pm (The above appointment is with [facility] for mental health counseling. You will also be seeing Agustin MCKEON on at 3:30pm for primary care and medication mgt. Please bring photo ID and insuance card to both appointments.) Functional capacity at discharge: independent ambulation Overall status at discharge: Stable Disposition: Home, Self-Care Quality - Multiple Antipsychotics Patient discharged on 2 or more antipsychotic medications: No Procedures - Procedures Procedures: Medication Management, Crisis Stabilization, Supportive Therapy, Group Therapy
== END 2018-05-06 11:56 | disposition home or self-care (01) | DRG 751 ==
LOC: EMEROO 13:15 → 1ANU 19:04
PROVIDERS: ADMIT Psychiatry & Neurology Psychiatry; ATTEND Psychiatry & Neurology Psychiatry

== ENCOUNTER 2018-09-13 16:09 | Inpatient (IN) ==
--- NOTE | 2018-09-13 16:58 | Emergency Department Note ---
Disposition Clinical Impression: Acute psychosis, Neurofibromatosis Disposition: Admitted As Inpatient Condition: Fair Referrals: [facility] [Outside] [facility] [Outside] NONE,PCP [Primary Care Provider] - Forms: ED Satisfaction Letter Time of Disposition: 18:51 Psych HPI - General Chief Complaint: ED Psychiatric Symptoms Stated Complaint: 1A consult Time Seen by Provider: 09/13/18 16:37 Nursing Notes Reviewed: Yes Vital Signs Reviewed: Yes - History of Present Illness HPI Narrative: 42 year old male presents for psych evaluation. Patient states he was admitted to Psych in April and is having same symptoms as last time. When asked what symptoms he's having, patient cannot verbalize and repeatedly states he's having the same thing as last time. Patient states he believes it's because he hasn't taken his meds since April. He doesn't know what meds they are. According to triage, patient is having visual and auditory hallucinations. When asked if he's having hallucinations, he states "I think that's what's going on." Patient cannot verbalize what he's hallucinating. Patient states that he was sent to ED by someone but cannot say who. Patient denies any suicidal and homicidal ideation. Patient denies any other complaints. Denies access to guns. Patient does not know his medical and psych history. Patient denies any substance use today. - Related Data Previous Rx's Medication Instructions Recorded Mirtazapine [Remeron] 7.5 mg PO HS #30 tablet 05/06/18 risperiDONE [RisperDAL] 1 mg PO BID #60 tablet 05/06/18 Allergies Allergy/AdvReac Type Severity Reaction Status Date / Time No Known Allergies Allergy Verified 03/22/17 13:49 Limitations: ROS unobtainable due to patients medical condition Past Medical History - Past Medical History Medical history: Reports: other (neurofibramatosis) Surgical history: Reports: cholecystectomy, other Psychiatric history: Reports: depression, previous psychiatric hospitalization - Social History Smoking Status: Current every day smoker Smokeless Tobacco Status: No Alcohol use: Reports: none Drug use: Reports: none Physical Exam - General General appearance: alert, in no apparent distress - Head Head exam: atraumatic, normocephalic - Eye Eye exam: Present: PERRL, EOMI - ENT ENT exam: normal oropharynx, mucous membranes moist - Neck Neck exam: Present: normal inspection - Chest Chest inspection: Present: normal inspection, symmetric chest wall rise - Respiratory Respiratory exam: Present: normal lung sounds bilaterally. Absent: respiratory distress - Cardiovascular Cardiovascular exam: Present: regular rate, normal rhythm - Abdominal Exam Abdominal exam: Present: soft, Non-Tender, normal bowel sounds. Absent: distention, guarding, rebound, rigidity - Extremities Exam Extremities exam: Present: normal inspection. Absent: tenderness, pedal edema, joint swelling - Skin Skin exam: Present: warm, dry, intact, normal color Course Course Narrative: 42 year old male presents for psych evaluation. Patient states he's having same symptoms as last psych admission because he has not been taking his meds since then. According to review of medical records, patient was admitted to psych in April for SI and psychosis secondary to neurofibromatosis. Patient was re-stabil ized on mirtazapine and risperidone and discharged home. Patient denies suicidal and homicidal ideation at this time. Patient is alert and hemodynamically stable. Physical exam is unremarkable. Will do psych medical clearance. - Reevaluation(s) Reevaluation #1: CBC and BMP are unremarkable. UA is unremarkable. Acetaminophen, salicylates, and ethanol are negative. Urine drug screen is negative. Time: 17:49 Reevaluation #2: 1A evaluated patient and will admit. Time: 18:50 Vital Signs Temperature 98.6 F 09/13/18 16:30 Pulse Rate 82 09/13/18 16:30 Respiratory Rate 18 09/13/18 16:30 Blood Pressure 149/95 09/13/18 16:30 O2 Sat by Pulse Oximetry 100 09/13/18 16:30 Temperature 98.6 F 09/13/18 17:26 Pulse Rate 82 09/13/18 17:26 Respiratory Rate 18 09/13/18 17:26 Blood Pressure 149/95 09/13/18 17:26 O2 Sat by Pulse Oximetry 100 09/13/18 17:26 Oxygen Delivery Oxygen Delivery Room Air Psych - Medical Records Medical records reviewed: Yes I reviewed the patient's medical records. - Lab Data Lab results reviewed: Yes I reviewed the patient's lab results. Result diagrams: 09/13/18 16:56 09/13/18 16:56 Lab Results 09/13/18 09/13/18 09/13/18 Range/Units 16:56 16:56 17:24 WBC 5.8 (4.3-11.1) K/mcL RBC 4.87 (4.19-5.50) M/mcL Hgb 14.5 (12.9-16.9) g/dL Hct 43.0 (37.5-50.1) % MCV 88.3 (83.0-100.0) fL MCH 29.8 (28.0-33.3) pg MCHC 33.7 (31.6-35.5) g/dL RDW 13.4 (11.5-14.5) % Plt Count 218 (140-400) K/mcL MPV 12.4 (9.4-12.4) fL Immature Gran % 0.2 (0-4) % Seg Neutrophils % 70.4 % Lymphocytes % 17.8 % Monocytes % 9.6 % Eosinophils % 1.7 % Basophils % 0.3 % Neutrophils # 4.1 (1.6-8.9) K/mcL Lymphocytes # 1.0 (0.6-4.6) K/mcL Monocytes # 0.6 (0.0-1.3) K/mcL Eosinophils # 0.1 (0.0-0.6) K/mcL Basophils # 0.0 (0.0-0.2) K/mcL Sodium 137 (136-145) mEq/L Potassium 3.8 (3.5-5.1) mEq/L Chloride 106 (98-107) mEq/L Carbon Dioxide 24 (23-29) mEq/L BUN 11 (6-20) mg/dL Creatinine 0.92 (0.70-1.30) mg/dL Est GFR ( Amer) > 60 (> 60) Est GFR (Non-Af Amer) > 60 (> 60) BUN/Creatinine Ratio 12 (6-26) Glucose 94 (70-105) mg/dL Calculated Osmolality 283 (280-300) Calcium 9.5 (8.6-10.3) mg/dL Urine Color Dark Yellow (Yellow) Urine Clarity Clear (Clear) Urine pH 6.0 (5.0-8.0) pH Units Ur Specific [place] 1.023 (1.010-1.025) Urine Protein Negative (Neg-Trace) mg/dL Urine Glucose (UA) Normal (Normal) mg/dL Urine Ketones Trace H (Negative) mg/dL Urine Blood Negative (Negative) Urine Nitrite Negative (Negative) Urine Bilirubin Small H (Negative) Urine Urobilinogen Normal (Normal) mg/dL Ur Leukocyte Esterase Trace H (Negative) Urine Microscopic RBC 0-3 (0-3) per hpf Urine Microscopic WBC 0-3 (0-3) per hpf Ur Squamous Epith Cells Moderate H (None-Few) per lpf Urine Bacteria None Seen (None-Few) per hpf Hyaline Casts None Seen (None-Few) per lpf Urine Mucus Few (Few) Urine Yeast Test Not Performed Salicylates < 2.5 L (15.0-30.0) mg/dL Urine Opiates Screen (Ymnsry=127) ng/mL Acetaminophen < 10 L (10-20) mcg/mL Ur Barbiturates Screen (Kuwkxx=434) ng/mL Ur Phencyclidine Scrn (Cutoff=25) ng/mL Ur Amphetamines Screen (Yvbnfo=5586) ng/mL U Benzodiazepines Scrn (Vlwcuf=060) ng/mL Urine Cocaine Screen (Cutoff= 300) ng/mL U Marijuana (THC) Screen (Cutoff = 50) ng/mL Ur Drug Screen Interp Ethyl Alcohol < 10 (Less than 10) mg/dL 09/13/18 Range/Units 17:24 WBC (4.3-11.1) K/mcL RBC (4.19-5.50) M/mcL Hgb (12.9-16.9) g/dL Hct (37.5-50.1) % MCV (83.0-100.0) fL MCH (28.0-33.3) pg MCHC (31.6-35.5) g/dL RDW (11.5-14.5) % Plt Count (140-400) K/mcL MPV (9.4-12.4) fL Immature Gran % (0-4) % Seg Neutrophils % % Lymphocytes % % Monocytes % % Eosinophils % % Basophils % % Neutrophils # (1.6-8.9) K/mcL Lymphocytes # (0.6-4.6) K/mcL Monocytes # (0.0-1.3) K/mcL Eosinophils # (0.0-0.6) K/mcL Basophils # (0.0-0.2) K/mcL Sodium (136-145) mEq/L Potassium (3.5-5.1) mEq/L Chloride (98-107) mEq/L Carbon Dioxide (23-29) mEq/L BUN (6-20) mg/dL Creatinine (0.70-1.30) mg/dL Est GFR ( Amer) (> 60) Est GFR (Non-Af Amer) (> 60) BUN/Creatinine Ratio (6-26) Glucose (70-105) mg/dL Calculated Osmolality (280-300) Calcium (8.6-10.3) mg/dL Urine Color (Yellow) Urine Clarity (Clear) Urine pH (5.0-8.0) pH Units Ur Specific [place] (1.010-1.025) Urine Protein (Neg-Trace) mg/dL Urine Glucose (UA) (Normal) mg/dL Urine Ketones (Negative) mg/dL Urine Blood (Negative) Urine Nitrite (Negative) Urine Bilirubin (Negative) Urine Urobilinogen (Normal) mg/dL Ur Leukocyte Esterase (Negative) Urine Microscopic RBC (0-3) per hpf Urine Microscopic WBC (0-3) per hpf Ur Squamous Epith Cells (None-Few) per lpf Urine Bacteria (None-Few) per hpf Hyaline Casts (None-Few) per lpf Urine Mucus (Few) Urine Yeast Salicylates (15.0-30.0) mg/dL Urine Opiates Screen Negative (Mpmgje=218) ng/mL Acetaminophen (10-20) mcg/mL Ur Barbiturates Screen Negative (Ienkvl=488) ng/mL Ur Phencyclidine Scrn Negative (Cutoff=25) ng/mL Ur Amphetamines Screen Negative (Mvwcdd=0159) ng/mL U Benzodiazepines Scrn Negative (Umqiml=207) ng/mL Urine Cocaine Screen Negative (Cutoff= 300) ng/mL U Marijuana (THC) Screen Negative (Cutoff = 50) ng/mL Ur Drug Screen Interp See Below Ethyl Alcohol (Less than 10) mg/dL Psychiatric Medical Clearance - Medical Clearance Checklist Medical History: No Social History Section defined Current Vitals: Last Vital Signs Temp 98.6 F 09/13/18 17:26 Pulse 82 09/13/18 17:26 Resp 18 09/13/18 17:26 BP 149/95 09/13/18 17:26 Pulse Ox 100 09/13/18 17:26 Psychiatric Lab Panel: Drug Levels and Toxicity 09/13/18 09/13/18 16:56 17:24 Urine Opiates Screen Negative Acetaminophen < 10 L Ur Barbiturates Screen Negative Ur Phencyclidine Scrn Negative Ur Amphetamines Screen Negative U Benzodiazepines Scrn Negative Urine Cocaine Screen Negative U Marijuana (THC) Screen Negative Ethyl Alcohol < 10 Abnormal Labs: Abnormal lab results Urine Ketones Trace mg/dL (Negative) H 09/13/18 17:24 Urine Bilirubin Small (Negative) H 09/13/18 17:24 Ur Leukocyte Esterase Trace (Negative) H 09/13/18 17:24 Ur Squamous Epith Cells Moderate per lpf (None-Few) H 09/13/18 17:24 Salicylates < 2.5 mg/dL (15.0-30.0) L 09/13/18 16:56 Acetaminophen < 10 mcg/mL (10-20) L 09/13/18 16:56 Statement of Medical Clearance: I have evaluated the patient, reviewed diagnostic information, and certify that the patient's medical condition is sufficiently stable that transfer to the psychiatric unit does not pose a significant risk of deterioration.
[2018-09-13 17:24] LABS: Basophils % 0.3 %; Eosinophils # 0.1 K/mcL (0.0-0.6); Eosinophils % 1.7 %; Hemoglobin 14.5 g/dL (12.9-16.9); Immature Granulocytes % 0.2 % (0-4); Lymphocytes % 17.8 %; Mean Corpuscular HGB Conc 33.7 g/dL (31.6-35.5); Mean Corpuscular Hemoglobin 29.8 pg (28.0-33.3); Mean Corpuscular Volume 88.3 fL (83.0-100.0); Mean Platelet Volume 12.4 fL (9.4-12.4); Monocytes # 0.6 K/mcL (0.0-1.3); Monocytes % 9.6 %; Neutrophils # 4.1 K/mcL (1.6-8.9); Platelet Count 218 K/mcL (140-400); Red Blood Count 4.87 M/mcL (4.19-5.50); Red Cell Distribution Width 13.4 % (11.5-14.5); Segmented Neutrophils % 70.4 %
[2018-09-13 17:35] LABS: Bilirubin,Urine Small (Negative); Blood,Urine Negative (Negative); Clarity,Urine Clear (Clear); Color,Urine Dark Yellow (Yellow); Glucose,Urine (UA) Normal (Normal); Ketones,Urine Trace mg/dL (Negative); Leukocyte Esterase,Urine Trace (Negative); Nitrite,Urine Negative (Negative); Protein,Urine Negative (Neg-Trace); Specific Gravity,Urine 1.023 (1.010-1.025); Urobilinogen,Urine Normal (Normal)
[2018-09-13 17:43] LABS: Bacteria,Urine None Seen per hpf (None-Few); Hyaline Casts,Urine None Seen per lpf (None-Few); RBC,Urine 0-3 per hpf (0-3); Squamous Epithelial Cell,Urine Moderate per lpf (None-Few); WBC,Urine 0-3 per hpf (0-3)
[2018-09-13 17:45] LABS: Acetaminophen < 10 mcg/mL (10-20); BUN/Creatinine Ratio 12 (6-26); Blood Urea Nitrogen 11 mg/dL (6-20); Calcium 9.5 mg/dL (8.6-10.3); Carbon Dioxide 24 mEq/L (23-29); Chloride 106 mEq/L (98-107); Ethanol < 10 mg/dL (Less than 10); Glucose 94 mg/dL (70-105); Osmolality,Calculated 283 (280-300); Potassium 3.8 mEq/L (3.5-5.1); Salicylate < 2.5 mg/dL (15.0-30.0); Sodium 137 mEq/L (136-145); eGFR For Non-African Americans > 60 (> 60)
[2018-09-13 17:49] LABS: Amphetamine Screen,Urine Negative ng/mL (Cutoff=1000); Barbiturate Screen,Urine Negative ng/mL (Cutoff=200); Benzodiazepines Screen,Urine Negative ng/mL (Cutoff=200); Cannabinoid Screen,Urine Negative ng/mL (Cutoff = 50); Cocaine Screen,Urine Negative ng/mL (Cutoff= 300); Opiate Screen,Urine Negative ng/mL (Cutoff=300); Phencyclidine Screen,Urine Negative ng/mL (Cutoff=25)
[2018-09-13 18:00] LABS: Mucus,Urine Few (Few)
--- NOTE | 2018-09-13 18:53 | Emergency Department Note ---
START Narrative - START START: I, Endy Brice, examined this patient and my medical decision-making was reviewed with the WEATHERIZATION ADMINISTRATOR/PA/Advanced Practice Nurse/Resident Physician. I agree with the documented findings, disposition and treatment plan as described except to the extent set forth below. 42-year-old male presents emergency Department with concerns of auditory hallucinations. Patient states he hears multiple voices to tell him to do different things. He is unable to describe specific things that they have told him although he admits to suicidal ideation and homicidal ideation. Patient denies visual hallucinations. He states that he has been admitted to behavioral health for this in the past. Patient apparently has not been taking his medications at home. He will be medically cleared and evaluated by behavioral health. Patient was evaluated by behavioral health and found him to require inpatient treatment for his psychiatric care.
[2018-09-13] MEDS ORDERED: traZODone 50 MG TABLET PO PRN (19:27)
[2018-09-13] MEDS ORDERED: Acetaminophen 325 MG TABLET PO PRN (19:27)
[2018-09-13] MEDS ORDERED: Haloperidol Lactate 5 MG/ML VIAL IM PRN (19:27)
[2018-09-13] MEDS ORDERED: MOM Conc 10 ML UD.LIQ PO PRN (19:27)
[2018-09-13] MEDS ORDERED: *HR* LORazepam 1 MG TABLET PO PRN (19:27)
[2018-09-13] MEDS ORDERED: *HR* LORazepam 2 MG/ML VIAL IM PRN (19:27)
[2018-09-13] MEDS ORDERED: Mag Hydrox/Al Hydrox/Simeth 30 ML UDC PO PRN (19:27)
[2018-09-13] MEDS ORDERED: hydrOXYzine pamoate 25 MG CAPSULE PO PRN (19:27)
[2018-09-14] MEDS ORDERED: (Paliperidone Palmitate [Invega Sustenna] 234 MG) IM ONE (11:00)
--- NOTE | 2018-09-14 13:23 | Psychiatry History & Physical ---
Date of Encounter: 09/14/18 Time of Encounter: 11:30 History of Present Illness Medicare Admission Attestation: For traditional Medicare patients the provided hospital inpatient services are reasonable and necessary and in the case of services not specified as inpatient-only under 42 CFR 419.22 (n), that they are appropriately provided as inpatient services in accordance 42 CFR 412.3. For Critical Access Hospital the patient may reasonably be expected to be discharged or transferred to a hospital within 96 hours after admission to the Critical Access Hospital. Admitted From: Emergency Dept Plans for Post Hospital Care: Home History of Present Illness: Mr. Valentine is a 42 year old male admitted through the ED for psyhosis and nonmed compliance. Patient was recently in [address] for similar condition. Patient stated that he did not get his medication from the [facility], so essentially has taken no meds since discharge in April. Patient states that he hears voices that tell him to do things, sometimes to cut himself. Patient denies any suicide attempts secondary to voices. Patient does endorse suicidal ideation, however. Patient denies MJ or other street drugs. Patient lives with his mother and had some cognitive deficits and appears to be low functioning. 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 Past Med Surg Social Fam HX - Past Medical History Medical history: other - Past Psychiatric History Psychiatric history: Reports: schizophrenia, previous psychiatric hospitalization Past psychiatric history details: Patient's last hosipitaliztion in [facility] was in April of 2018. Patient has been noncompliant with meds Family psychiatric history: Unknown Family History of Suicide: Unknown - Past Surgical History Surgical History: cholecystectomy, other - Social History Smoking Status: Current every day smoker Smokeless Tobacco Status: No Alcohol use: none Drug use: none Occupational status: unemployed Activity Level: Independent ambulation Recent Out of Country Travel Within the Last 8 Weeks: No Exposure or Possible Exposure to Illness During Travel: No Medications & Allergies Paliperidone Palmitate [Invega Sustenna] 234 mg IM Q4W 09/14/18 [History] Allergy/AdvReac Type Severity Reaction Status Date / Time No Known Allergies Allergy Verified 03/22/17 13:49 Review of Systems Constitutional: Denies: fever, chills, weakness, weight change Eyes: Denies: eye pain, vision change Ears, Nose, Throat: Denies: ear pain, throat pain, dental pain, hearing loss, congestion Cardiovascular: Denies: chest pain, palpitations, dyspnea on exertion Respiratory: Denies: cough, dyspnea, wheezes Gastrointestinal: Denies: abdominal pain, nausea, vomiting, diarrhea, constipation Genitourinary male: Denies: urgency, dysuria, frequency, genital lesions Musculoskeletal: Denies: joint swelling, joint pain Integumentary: Reports: other Neurological: Denies: headache, weakness, numbness, memory loss Psychiatric: Reports: suicidal ideation, auditory hallucinations, visual hallucinations, difficulty concentrating Endocrine: Denies: fatigue, heat or cold intolerance Hematologic/Lymphatic: Denies: easy bruising, lymphadenopathy Allergic/Immunologic: Denies: urticaria, itchy eyes Exam - HEENT Head exam IM: Present: atraumatic Eye exam IM: Present: EOMI, normal appearance, PERRL ENT exam IM: Present: normal exam - Neurological Neurological exam: Present: CN II-XII intact - Respiratory Respiratory exam IM: Present: CTAB - GI/Abdominal GI/Abdominal exam IM: Present: normal bowel sounds, soft. Absent: tenderness - Extremities Extremities exam IM: Present: full ROM - Skin Skin exam IM: Present: mottled - Additional Information Additional Information: Patient has growths varying in size on his body secondary to neurofibromatosis - Constitutional Vitals: Temp Pulse Resp BP Pulse Ox 98.5 F 76 14 126/65 99 09/14/18 09:00 09/14/18 09:00 09/14/18 09:00 09/14/18 09:00 09/14/18 09:00 General appearance: age & developmentally appropriate, well-groomed, well- nourished - Musculoskeletal Gait: normal Station: relaxed Strength & Tone: normal for patient - Psychiatric Patient Orientation: Yes Person, Yes Time, Yes Place Level of alertness: Alert Behavior: guarded, distractible, withdrawn Psychomotor activity: Normal Eye Contact: Minimal Contact Mood Description: Depressed, Anxious Speech pattern: limited, impoverished Language & Vocabulary: limited Thought Process: Tangential, Campbell, Slowed Thinking Thought Content: Yes Suicidal ideation, Yes Paranoid delusion, Yes Thought broadcasting Perceptual Disturbances: Yes Auditory hallucinations, Yes Visual hallucinations Memory Description: Grossly Intact Patient Reliability: Reliable Historian Fund of knowledge: Yes below average Intelligence Estimate: Below Average Judgment: Limited Insight: Minimal Results - Drug Levels and Toxicology Drug Levels and Toxicology: Drug Levels and Toxicity 11/06/18 11/06/18 16:56 17:24 Urine Opiates Screen Negative Acetaminophen < 10 L Ur Barbiturates Screen Negative Ur Phencyclidine Scrn Negative Ur Amphetamines Screen Negative U Benzodiazepines Scrn Negative Urine Cocaine Screen Negative U Marijuana (THC) Screen Negative Ethyl Alcohol < 10 - Labs Labs: Laboratory Last Values WBC 5.8 K/mcL (4.3-11.1) 09/13/18 16:56 RBC 4.87 M/mcL (4.19-5.50) 09/13/18 16:56 Hgb 14.5 g/dL (12.9-16.9) 09/13/18 16:56 Hct 43.0 % (37.5-50.1) 09/13/18 16:56 MCV 88.3 fL (83.0-100.0) 09/13/18 16:56 MCH 29.8 pg (28.0-33.3) 09/13/18 16:56 MCHC 33.7 g/dL (31.6-35.5) 09/13/18 16:56 RDW 13.4 % (11.5-14.5) 09/13/18 16:56 Plt Count 218 K/mcL (140-400) 09/13/18 16:56 MPV 12.4 fL (9.4-12.4) 09/13/18 16:56 Immature Gran % 0.2 % (0-4) 09/13/18 16:56 Seg Neutrophils % 70.4 % 09/13/18 16:56 Lymphocytes % 17.8 % 09/13/18 16:56 Monocytes % 9.6 % 09/13/18 16:56 Eosinophils % 1.7 % 09/13/18 16:56 Basophils % 0.3 % 09/13/18 16:56 Neutrophils # 4.1 K/mcL (1.6-8.9) 09/13/18 16:56 Lymphocytes # 1.0 K/mcL (0.6-4.6) 09/13/18 16:56 Monocytes # 0.6 K/mcL (0.0-1.3) 09/13/18 16:56 Eosinophils # 0.1 K/mcL (0.0-0.6) 09/13/18 16:56 Basophils # 0.0 K/mcL (0.0-0.2) 09/13/18 16:56 Sodium 137 mEq/L (136-145) 09/13/18 16:56 Potassium 3.8 mEq/L (3.5-5.1) 09/13/18 16:56 Chloride 106 mEq/L (98-107) 09/13/18 16:56 Carbon Dioxide 24 mEq/L (23-29) 09/13/18 16:56 BUN 11 mg/dL (6-20) 09/13/18 16:56 Creatinine 0.92 mg/dL (0.70-1.30) 09/13/18 16:56 Est GFR ( Amer) > 60 (> 60) 09/13/18 16:56 Est GFR (Non-Af Amer) > 60 (> 60) 09/13/18 16:56 BUN/Creatinine Ratio 12 (6-26) 09/13/18 16:56 Glucose 94 mg/dL (70-105) 09/13/18 16:56 Calculated Osmolality 283 (280-300) 09/13/18 16:56 Calcium 9.5 mg/dL (8.6-10.3) 09/13/18 16:56 Urine Color Dark Yellow (Yellow) 09/13/18 17:24 Urine Clarity Clear (Clear) 09/13/18 17:24 Urine pH 6.0 pH Units (5.0-8.0) 09/13/18 17:24 Ur Specific [place] 1.023 (1.010-1.025) 09/13/18 17:24 Urine Protein Negative mg/dL (Neg-Trace) 09/13/18 17:24 Urine Glucose (UA) Normal mg/dL (Normal) 09/13/18 17:24 Urine Ketones Trace mg/dL (Negative) H 09/13/18 17:24 Urine Blood Negative (Negative) 09/13/18 17:24 Urine Nitrite Negative (Negative) 09/13/18 17:24 Urine Bilirubin Small (Negative) H 09/13/18 17:24 Urine Urobilinogen Normal mg/dL (Normal) 09/13/18 17:24 Ur Leukocyte Esterase Trace (Negative) H 09/13/18 17:24 Urine Microscopic RBC 0-3 per hpf (0-3) 09/13/18 17:24 Urine Microscopic WBC 0-3 per hpf (0-3) 09/13/18 17:24 Ur Squamous Epith Cells Moderate per lpf (None-Few) H 09/13/18 17:24 Urine Bacteria None Seen per hpf (None-Few) 09/13/18 17:24 Hyaline Casts None Seen per lpf (None-Few) 09/13/18 17:24 Urine Mucus Few (Few) 09/13/18 17:24 Urine Yeast Test Not Performed 09/13/18 17:24 Salicylates < 2.5 mg/dL (15.0-30.0) L 09/13/18 16:56 Urine Opiates Screen Negative ng/mL (Tlknwr=659) 09/13/18 17:24 Acetaminophen < 10 mcg/mL (10-20) L 09/13/18 16:56 Ur Barbiturates Screen Negative ng/mL (Rixeyt=417) 09/13/18 17:24 Ur Phencyclidine Scrn Negative ng/mL (Cutoff=25) 09/13/18 17:24 Ur Amphetamines Screen Negative ng/mL (Wxgbrt=1878) 09/13/18 17:24 U Benzodiazepines Scrn Negative ng/mL (Yfabfl=131) 09/13/18 17:24 Urine Cocaine Screen Negative ng/mL (Cutoff= 300) 09/13/18 17:24 U Marijuana (THC) Screen Negative ng/mL (Cutoff = 50) 09/13/18 17:24 Ur Drug Screen Interp See Below 09/13/18 17:24 Ethyl Alcohol < 10 mg/dL (Less than 10) 09/13/18 16:56 - Impressions Patient has been off of his antipsychotic for several months and has deteriorated in functioning and has reemergence of psychotic symptoms. Patient has compliance issues. Discussed with patient trying SPRAGUE such as Invega Sustenna. He agress that he would like to try it. Risks/benefits discusses. Oral Invega 6mg was initiated on admission and Invega Sustenna 234 mg order for loading injection. Assessment and Plan (1) Psychosis Current visit: Yes Status: Acute Plan: Admit inpatient for safety and stabilization, Close observation, Suicide Precautions per unit protocol, Encourage participation in unit milieu, Group Therapy, Monitor sleep, Monitor appetite Additional Plan: Start SPRAGUE Risks, benefits, side effects, alternatives discussed w/pt: Yes Patient agreeable to treatment: Yes Estimated Length of Stay (Days): 5 Qualifiers: Psychosis type: schizophrenia Schizophrenia type: paranoid schizophrenia Qualified Code(s): F20.0 - Paranoid schizophrenia (2) Suicidal ideation Current visit: Yes Status: Chronic Plan: Admit inpatient for safety and stabilization, Close observation, Suicide Precautions per unit protocol, Encourage participation in unit milieu, Group Therapy, Monitor sleep, Monitor appetite Additional Plan: Patient's thughts a result of hearing voices than self intent May consider antidepressant after assessment on antipsychotic for a few days. Risks, benefits, side effects, alternatives discussed w/pt: Yes Patient agreeable to treatment: Yes Plans for Post Hospital Care: Transfer Other Estimated Length of Stay (Days): 5
[2018-09-15 07:58] LABS: Chol/HDL Ratio 2.9 (0-4.9)
--- NOTE | 2018-09-15 15:18 | Psychiatry Progress Note ---
Date of Encounter: 09/15/18 Time of Encounter: 11:00 Subjective Interval history: Patient in bed on rounds. He states that he is tired, but lays around at home too. Patient admits to auditory hallucinations, but denies visual hallucinations. Patient continues to have some paranoid thinking and tends to isolate. Patient tolerating the Invega oral and got his Invega Sustenna yesterday. No side effects reported. Patient denies SI/HI. Appetite good today. SW looking into what other opotions beside living with his mother patient may have. HIs mother seems not to be concerned that he stay on his medications. Review of Systems Constitutional: Denies: fever, chills, weakness, weight change Eyes: Denies: eye pain, vision change Ears, Nose, Throat: Denies: ear pain, throat pain, dental pain, hearing loss, congestion Cardiovascular: Denies: chest pain, palpitations, dyspnea on exertion Respiratory: Denies: cough, dyspnea, wheezes Gastrointestinal: Denies: abdominal pain, nausea, vomiting, diarrhea, constipation Musculoskeletal: Denies: joint swelling, joint pain Integumentary: Reports: other Neurological: Denies: headache, weakness, numbness, memory loss Psychiatric: Reports: suicidal ideation, auditory hallucinations, visual hallucinations, difficulty concentrating Results - Vital Signs Vital Signs: Temp Pulse Resp BP Pulse Ox 98.5 F 84 14 127/73 99 09/15/18 09:00 09/15/18 09:00 09/15/18 09:00 09/15/18 09:00 09/15/18 09:00 - Labs Labs: Laboratory Results - last 24 hr 09/15/18 07:20 Glucose 95 Triglycerides 74 Cholesterol 142 LDL Cholesterol, Calc 78 VLDL Cholesterol, Calc 15 HDL Cholesterol 49 Cholesterol/HDL Ratio 2.9 - Impressions lipid panel and FBS are WNL Assessment and Plan (1) Psychosis Current visit: Yes Status: Acute Plan: Continue hospitalization, Close observation, Suicide Precautions per unit protocol, Encourage participation in unit milieu, Group Therapy, Monitor sleep, Monitor appetite Risks, benefits, side effects, alternatives discussed w/pt: Yes Patient agreeable to treatment: Yes Qualifiers: Psychosis type: schizophrenia Schizophrenia type: paranoid schizophrenia Qualified Code(s): F20.0 - Paranoid schizophrenia (2) Suicidal ideation Current visit: Yes Status: Chronic Plan: Continue hospitalization, Close observation, Suicide Precautions per unit protocol, Encourage participation in unit milieu, Group Therapy, Monitor sleep, Monitor appetite Additional Plan: Patient's thughts a result of hearing voices than self intent May consider antidepressant after assessment on antipsychotic for a few days. Risks, benefits, side effects, alternatives discussed w/pt: Yes Patient agreeable to treatment: Yes Consult Discharge Plan - Plan Additional Instructions: Patient received Invega Sustenna 234mg on 09/14/2018. Invega Sustenna 156mg is due again on 09/22/2018. Invega Sustenna 156mg is due again on 10/20/2018 and every four weeks thereafter. Referrals: [facility] [Outside] - 10/13/18 1:50 pm (The above appointment is with Jodie Saha for outpatient psychiatric assessment and medication management services.) Psychiatry Exam - Constitutional Vitals: Temp Pulse Resp BP Pulse Ox 98.5 F 84 14 127/73 99 09/15/18 09:00 09/15/18 09:00 09/15/18 09:00 09/15/18 09:00 09/15/18 09:00 General appearance: age & developmentally appropriate, well-groomed, well- nourished Additional observations: Patient in be and looks tired. Patient has some bilateral ptosis - Musculoskeletal Gait: normal Station: stooped Strength & Tone: normal for patient - Psychiatric Patient Orientation: Yes Person, Yes Time, Yes Place Level of alertness: Alert Behavior: calm, cooperative, suspicious, withdrawn Psychomotor activity: Slowed Eye Contact: Minimal Contact Mood Description: Depressed, Anxious Patient description of mood: down Affect description: blunted Speech Volume: Soft/Quiet Speech pattern: slowed, impoverished Language & Vocabulary: limited Thought Process: Slowed Thinking Thought Content: Yes Paranoid delusion, Yes Poverty of Content Perceptual Disturbances: Yes Auditory hallucinations, No Visual hallucinations Attention Span Ability: Capable of Focused Attention Memory Description: Grossly Intact Patient Reliability: Questionable Historian Fund of knowledge: Yes below average Intelligence Estimate: Below Average Judgment: Limited Insight: Minimal
[2018-09-16 10:07] VITALS: BP 128/90
--- NOTE | 2018-09-16 13:01 | Discharge Summary ---
Date of Encounter: 09/16/18 Time of Encounter: 12:30 Diagnosis - Discharge Diagnosis (1) Psychosis Priority: Primary Status: Acute Qualifiers: Psychosis type: schizophrenia Schizophrenia type: paranoid schizophrenia Qualified Code(s): F20.0 - Paranoid schizophrenia (2) Suicidal ideation Priority: Secondary Status: Chronic Comments: Patient had chronicity of SI, so acute SI at discharge Medications - Discharge Medications Paliperidone Palmitate [Invega Sustenna] 234 mg IM Q4W 09/14/18 [History] Allergy/AdvReac Type Severity Reaction Status Date / Time No Known Allergies Allergy Verified 03/22/17 13:49 Results Procedures and tests throughout hospitalization: Completed Lab Orders Category Date Time Status Acetaminophen Stat Lab 09/13/18 16:56 Completed Basic Metabolic Panel Stat Lab 09/13/18 16:56 Completed Complete Blood Count [HEME] Stat Lab 09/13/18 16:56 Completed Drug Screen, Urine [UCHEM] Stat Lab 09/13/18 17:24 Completed Ethanol Stat Lab 09/13/18 16:56 Completed Glucose AM 0400 Lab 09/15/18 07:20 Completed Lipid Panel AM 0400 Lab 09/15/18 07:20 Completed Salicylate Stat Lab 09/13/18 16:56 Completed Urinalysis reflex Microscopic [URIN] Stat Lab 09/13/18 17:24 Completed - Impressions LIpids WNL glucose WNL Provider Date of admission: 09/13/18 18:58 Primary care physician: PCP NONE Discharging clinician: Earline Alba Psychiatry Exam - Constitutional Vitals: Temp Pulse Resp BP Pulse Ox 98.5 F 104 18 128/90 95 09/16/18 09:00 09/16/18 09:00 09/16/18 09:00 09/16/18 09:00 09/16/18 09:00 General appearance: thin - Musculoskeletal Gait: shuffling Station: relaxed Strength & Tone: normal for patient - Psychiatric Patient Orientation: Yes Person, Yes Time, Yes Place Level of alertness: Alert Behavior: calm, cooperative Psychomotor activity: Slowed Eye Contact: Minimal Contact Mood Description: Euthymic/stable Patient description of mood: not depressed Affect description: congruent with mood Speech Volume: Soft/Quiet Speech pattern: normal rate, coherent, impoverished Language & Vocabulary: limited Thought Process: Tangential, Slowed Thinking Thought Content: Yes Poverty of Content Perceptual Disturbances: No Auditory hallucinations, No Visual hallucinations Attention Span Ability: Capable of Focused Attention Memory Description: Grossly Intact Patient Reliability: Reliable Historian Fund of knowledge: Yes below average Intelligence Estimate: Below Average Judgment: Fair Insight: Partial Hospital Course Hospital course: Mr. Valentine is a 42 year old male with a diagnosis of Paranoid Schizophrenia. AT the time of the admission patient had suicidal ideation, auditory and visual hallucinations and paranoid delusions. Patient had not taken his medication in several months. Patient was living with his mother and there was some concern that she was not accepting or getting his meds. Patient was started on INvega 6mg/d and Invega Sustenna 234mg/IM was initiated for psychosis. Patient spent a lot of time in bed and appeared to have some limitations in intellect and cognitive functioning. Patient showed improvement and at the time of discharge denies that he waas having suicidal thought, intent or plan. Patient was eating his food, but some limitation in participation in unit activities. Placing patient in a supervised setting was discussed, but patient wanted to go home and stay with his mother. Patient was on a 72 hour hold. Since david denied suicidal ideation and significant psychosis, he as not considered for involuntary stay. Patient will need his second Invega Sustenna injection on . A prescription for this will be provided. Patient has follow-up arranged.Patient's functioning is on the low side, so follow-up and compliance with meds is important. Time spent discussing smoking cessation with patient: 3 to 10 minutes Does patient wish to continue nicotine replacement upon disc: No - Time Spent with Patient Total time spent providing and/or coordinating discharge services: Less than 30 minutes Assessment and Plan - Patient/Caregiver Discharge Instructions Activity: resume usual activities as tolerated Diet: regular diet Additional Instructions: Patient received Invega Sustenna 234mg on 09/14/2018. Invega Sustenna 156mg is due again on 09/22/2018. Invega Sustenna 156mg is due again on 10/20/2018 and every four weeks thereafter. - Follow up Plan Follow up with: [facility] [Outside] - 09/22/18 1:50 pm (The above appointment is with Jodie Saha for outpatient psychiatric assessment and medication management services. You will receive your next Invega Sustenna injection this date as well. The injection medication has been sent to your pharmacy and will be delivered to [facility] so they will have it to give to you that day. A member of your case management team will pick you up for this appointment and take you home. They will also meet with you to discuss coping and needs.) Disposition: Home, Self-Care Quality - Multiple Antipsychotics Patient discharged on 2 or more antipsychotic medications: No Procedures - Procedures Procedures: Medication Management, Crisis Stabilization, Supportive Therapy, Group Therapy, Psychoeducational Therapy
== END 2018-09-16 15:08 | disposition home or self-care (01) | DRG 750 ==
LOC: EMEROOARM 16:09 → SUATTDRO 18:58 → 1ANU 18:58
PROVIDERS: ADMIT Psychiatry & Neurology Psychiatry; ATTEND Psychiatry & Neurology Psychiatry

== ENCOUNTER 2019-11-30 13:41 | Inpatient (IN) ==
[2019-11-30 14:41] LABS: Basophils % 0.3 %; Eosinophils # 0.1 K/mcL (0.0-0.6); Eosinophils % 1.8 %; Hematocrit 44.5 % (37.5-50.1); Hemoglobin 15.3 g/dL (12.9-16.9); Immature Granulocytes % 0.2 % (0-4); Lymphocytes # 1.1 K/mcL (0.6-4.6); Lymphocytes % 18.8 %; Mean Corpuscular HGB Conc 34.4 g/dL (31.6-35.5); Mean Corpuscular Hemoglobin 30.7 pg (28.0-33.3); Mean Corpuscular Volume 89.2 fL (83.0-100.0); Mean Platelet Volume 12.3 fL (9.4-12.4); Monocytes # 0.5 K/mcL (0.0-1.3); Monocytes % 8.8 %; Neutrophils # 4.2 K/mcL (1.6-8.9); Platelet Count 243 K/mcL (140-400); Red Blood Count 4.99 M/mcL (4.19-5.50); Red Cell Distribution Width 13.7 % (11.5-14.5); Segmented Neutrophils % 70.1 %
[2019-11-30 15:04] LABS: Estimated Average Glucose 91 mg/dl
[2019-11-30 15:09] LABS: Acetaminophen < 10 mcg/mL (10-20); BUN/Creatinine Ratio 15 (6-26); Blood Urea Nitrogen 14 mg/dL (6-20); Calcium 9.2 mg/dL (8.6-10.3); Carbon Dioxide 21 mEq/L (23-29); Chloride 105 mEq/L (98-107); Chol/HDL Ratio 2.6 (0-4.9); Cholesterol 159 mg/dL (< 200); Ethanol < 10 mg/dL (Less than 10); Glucose 93 mg/dL (70-105); HDL Cholesterol 62 mg/dL (40-59); LDL Cholesterol,Calculated 87 mg/dL (0-99); Osmolality,Calculated 284 (280-300); Potassium 4.1 mEq/L (3.5-5.1); Salicylate < 2.5 mg/dL (15.0-30.0); Sodium 137 mEq/L (136-145); Triglycerides 52 mg/dL (< 150); eGFR For African Americans > 60 (> 60); eGFR For Non-African Americans > 60 (> 60)
[2019-11-30 15:58] LABS: Amphetamine Screen,Urine Negative ng/mL (Cutoff=1000); Barbiturate Screen,Urine Negative ng/mL (Cutoff=200); Benzodiazepines Screen,Urine Negative ng/mL (Cutoff=200); Cannabinoid Screen,Urine Negative ng/mL (Cutoff = 50); Cocaine Screen,Urine Negative ng/mL (Cutoff= 300); Opiate Screen,Urine Negative ng/mL (Cutoff=300); Phencyclidine Screen,Urine Negative ng/mL (Cutoff=25)
[2019-11-30 16:27] LABS: Bilirubin,Urine Small (Negative); Blood,Urine Negative (Negative); Clarity,Urine Clear (Clear); Color,Urine Yellow (Yellow); Glucose,Urine (UA) Normal (Normal); Ketones,Urine Negative (Negative); Leukocyte Esterase,Urine Trace (Negative); Nitrite,Urine Negative (Negative); PH,Urine 6.5 pH Units (5.0-8.0); Protein,Urine Negative (Neg-Trace); Specific Gravity,Urine 1.028 (1.010-1.025); Urobilinogen,Urine Normal (Normal)
[2019-11-30 16:31] LABS: Bacteria,Urine None Seen per hpf (None-Few); Hyaline Casts,Urine None Seen per lpf (None-Few); RBC,Urine 0-3 per hpf (0-3); Squamous Epithelial Cell,Urine Many per lpf (None-Few); WBC,Urine 0-3 per hpf (0-3)
[2019-11-30] MEDS ORDERED: hydrOXYzine pamoate 25 MG CAPSULE PO PRN (19:25)
[2019-11-30] MEDS ORDERED: Acetaminophen 325 MG TABLET PO PRN (19:25)
[2019-11-30] MEDS ORDERED: *HR* LORazepam 1 MG TABLET PO PRN (19:25)
[2019-11-30] MEDS ORDERED: Mag Hydrox/Al Hydrox/Simeth 30 ML UDC PO PRN (19:25)
[2019-11-30] MEDS ORDERED: *HR* LORazepam 2 MG/ML VIAL IM PRN (19:25)
[2019-11-30] MEDS ORDERED: Haloperidol Lactate 5 MG/ML VIAL IM PRN (19:25)
[2019-11-30] MEDS ORDERED: traZODone 50 MG TABLET PO PRN (19:25)
[2019-11-30] MEDS ORDERED: MOM Conc 10 ML UD.LIQ PO PRN (19:25)
[2019-12-05 09:10] VITALS: BP 109/80
== END 2019-12-05 11:10 | disposition home or self-care (01) | DRG 757 ==
LOC: EMEROOARM 13:41 → 1ANU 19:04
PROVIDERS: ADMIT Psychiatry & Neurology Psychiatry; ATTEND Psychiatry & Neurology Psychiatry

== ENCOUNTER 2020-09-23 17:22 | Inpatient (IN) ==
[2020-09-23 18:51] LABS: Basophils % 0.4 %; Eosinophils # 0.1 K/mcL (0.0-0.6); Eosinophils % 2.7 %; Hematocrit 46.1 % (37.5-50.1); Lymphocytes # 1.1 K/mcL (0.6-4.6); Lymphocytes % 22.6 %; Mean Corpuscular HGB Conc 32.5 g/dL (31.6-35.5); Mean Corpuscular Hemoglobin 30.2 pg (28.0-33.3); Mean Corpuscular Volume 92.8 fL (83.0-100.0); Mean Platelet Volume 12.6 fL (9.4-12.4); Monocytes # 0.3 K/mcL (0.0-1.3); Neutrophils # 3.2 K/mcL (1.6-8.9); Platelet Count 224 K/mcL (140-400); Red Blood Count 4.97 M/mcL (4.19-5.50); Red Cell Distribution Width 14.4 % (11.5-14.5); Segmented Neutrophils % 67.3 %; White Blood Count 4.7 K/mcL (4.3-11.1)
[2020-09-23 18:59] LABS: Estimated Average Glucose 94 mg/dl
[2020-09-23 19:12] LABS: Acetaminophen < 10 mcg/mL (10-20); BUN/Creatinine Ratio 11 (6-26); Blood Urea Nitrogen 11 mg/dL (6-20); Calcium 9.5 mg/dL (8.6-10.3); Carbon Dioxide 25 mEq/L (23-29); Chloride 105 mEq/L (98-107); Chol/HDL Ratio 2.4 (0-4.9); Cholesterol 148 mg/dL (< 200); Ethanol < 10 mg/dL (Less than 10); Glucose 143 mg/dL (70-105); HDL Cholesterol 61 mg/dL (40-59); LDL Cholesterol,Calculated 80 mg/dL (< 100); Osmolality,Calculated 284 (280-300); Potassium 3.9 mEq/L (3.5-5.1); Salicylate < 2.5 mg/dL (15.0-30.0); Sodium 136 mEq/L (136-145); Triglycerides 35 mg/dL (< 150); eGFR For African Americans > 60 (> 60); eGFR For Non-African Americans > 60 (> 60)
[2020-09-23 20:06] LABS: Bilirubin,Urine Negative (Negative); Blood,Urine Negative (Negative); Clarity,Urine Clear (Clear); Color,Urine Yellow (Yellow); Glucose,Urine (UA) Normal (Normal); Ketones,Urine Negative (Negative); Leukocyte Esterase,Urine Negative (Negative); Nitrite,Urine Negative (Negative); PH,Urine 5.5 pH Units (5.0-8.0); Protein,Urine Negative (Neg-Trace); Specific Gravity,Urine 1.024 (1.010-1.025); Urobilinogen,Urine Normal (Normal)
[2020-09-23 20:14] LABS: Amphetamine Screen,Urine Negative ng/mL (Cutoff=1000); Barbiturate Screen,Urine Negative ng/mL (Cutoff=200); Benzodiazepines Screen,Urine Negative ng/mL (Cutoff=200); Cannabinoid Screen,Urine Negative ng/mL (Cutoff = 50); Cocaine Screen,Urine Negative ng/mL (Cutoff= 300); Opiate Screen,Urine Negative ng/mL (Cutoff=300); Phencyclidine Screen,Urine Negative ng/mL (Cutoff=25)
[2020-09-23 21:00] LABS: Hyaline Casts,Urine Few per lpf (None Seen); Mucus,Urine Few per lpf (None-Few); Squamous Epithelial Cell,Urine Few per hpf (None-Few); WBC,Urine 0-3 per hpf (0-3)
[2020-09-23] MEDS ORDERED: Haloperidol Lactate 5 MG/ML VIAL IM PRN (21:46)
[2020-09-23] MEDS ORDERED: *HR* LORazepam 2 MG/ML VIAL IM PRN (21:46)
[2020-09-23] MEDS ORDERED: *HR* LORazepam 1 MG TABLET PO PRN (21:46)
[2020-09-23] MEDS ORDERED: hydrOXYzine pamoate 25 MG CAPSULE PO PRN (21:46)
[2020-09-23] MEDS ORDERED: Mag Hydrox/Al Hydrox/Simeth 30 ML UDC PO PRN (21:46)
[2020-09-23] MEDS ORDERED: Ibuprofen 400 MG TABLET PO PRN (21:46)
[2020-09-23] MEDS ORDERED: haloperidoL 5 MG TABLET PO PRN (21:46)
[2020-09-23] MEDS ORDERED: MOM Conc 10 ML UD.LIQ PO PRN (21:46)
[2020-09-23] MEDS ORDERED: QUEtiapine Fumarate 25 MG TABLET PO PRN (21:46)
[2020-09-26] MEDS ORDERED: PALIPERIDONE PALMITATE 234 MG/1.5 ML SYRINGE IM SCH (10:15)
[2020-09-26] MEDS ORDERED: Mirtazapine 15 MG TABLET PO SCH (21:00)
[2020-09-27 09:39] VITALS: BP 135/77
== END 2020-09-27 10:50 | disposition home or self-care (01) | DRG 754 ==
LOC: EMEROOARM 17:22 → 1ANU 21:34
PROVIDERS: ADMIT Psychiatry & Neurology Psychiatry; ATTEND Psychiatry & Neurology Psychiatry

== ENCOUNTER 2021-02-26 17:46 | Inpatient (IN) ==
[2021-02-26 19:07] LABS: Basophils % 0.2 %; Eosinophils # 0.2 K/mcL (0.0-0.6); Eosinophils % 2.9 %; Hematocrit 42.2 % (37.5-50.1); Hemoglobin 14.2 g/dL (12.9-16.9); Immature Granulocytes % 0.2 % (0-4); Lymphocytes # 1.2 K/mcL (0.6-4.6); Lymphocytes % 22.6 %; Mean Corpuscular HGB Conc 33.6 g/dL (31.6-35.5); Mean Corpuscular Hemoglobin 30.6 pg (28.0-33.3); Mean Corpuscular Volume 90.9 fL (83.0-100.0); Mean Platelet Volume 12.6 fL (9.4-12.4); Monocytes # 0.5 K/mcL (0.0-1.3); Monocytes % 8.9 %; Neutrophils # 3.4 K/mcL (1.6-8.9); Platelet Count 200 K/mcL (140-400); Red Blood Count 4.64 M/mcL (4.19-5.50); Red Cell Distribution Width 14.6 % (11.5-14.5); Segmented Neutrophils % 65.2 %; White Blood Count 5.2 K/mcL (4.3-11.1)
[2021-02-26 19:29] LABS: Acetaminophen < 10 mcg/mL (10-20); BUN/Creatinine Ratio 14 (6-26); Blood Urea Nitrogen 13 mg/dL (6-20); Calcium 9.2 mg/dL (8.6-10.3); Carbon Dioxide 24 mEq/L (23-29); Chloride 107 mEq/L (98-107); Chol/HDL Ratio 2.9 (0-4.9); Cholesterol 152 mg/dL (< 200); Ethanol < 10 mg/dL (Less than 10); Glucose 91 mg/dL (70-105); HDL Cholesterol 53 mg/dL (40-59); LDL Cholesterol,Calculated 89 mg/dL (< 100); Osmolality,Calculated 286 (280-300); Potassium 3.8 mEq/L (3.5-5.1); Salicylate < 2.5 mg/dL (15.0-30.0); Sodium 138 mEq/L (136-145); Triglycerides 48 mg/dL (< 150); eGFR For African Americans > 60 (> 60); eGFR For Non-African Americans > 60 (> 60)
[2021-02-26 20:16] LABS: Bilirubin,Urine Negative (Negative); Blood,Urine Negative (Negative); Clarity,Urine Clear (Clear); Color,Urine Yellow (Yellow); Glucose,Urine (UA) Normal (Normal); Ketones,Urine Trace mg/dL (Negative); Leukocyte Esterase,Urine Negative (Negative); Mucus,Urine Few per lpf (None-Few); Nitrite,Urine Negative (Negative); Protein,Urine 30 mg/dL (Neg-Trace); WBC,Urine 0-3 per hpf (0-3)
[2021-02-26 20:22] LABS: Estimated Average Glucose 88 mg/dl; Hemoglobin A1C 4.7 %
[2021-02-26 20:24] LABS: Amphetamine Screen,Urine Negative ng/mL (Cutoff=1000); Barbiturate Screen,Urine Negative ng/mL (Cutoff=200); Benzodiazepines Screen,Urine Negative ng/mL (Cutoff=200); Cannabinoid Screen,Urine Negative ng/mL (Cutoff = 50); Cocaine Screen,Urine Negative ng/mL (Cutoff= 300); Opiate Screen,Urine Negative ng/mL (Cutoff=300); Phencyclidine Screen,Urine Negative ng/mL (Cutoff=25)
[2021-02-26] MEDS ORDERED: *HR* LORazepam 1 MG TABLET PO ONE (21:17)
[2021-02-27] MEDS ORDERED: traZODone 50 MG TABLET PO PRN (14:47)
[2021-02-27] MEDS ORDERED: haloperidoL 5 MG TABLET PO PRN (14:47)
[2021-02-27] MEDS ORDERED: Haloperidol Lactate 5 MG/ML VIAL IM PRN (14:47)
[2021-02-27] MEDS ORDERED: *HR* LORazepam 1 MG TABLET PO PRN (14:47)
[2021-02-27] MEDS ORDERED: *HR* LORazepam 2 MG/ML VIAL IM PRN (14:47)
[2021-02-27] MEDS ORDERED: Acetaminophen 325 MG TABLET PO PRN (14:47)
[2021-02-27] MEDS: risperiDONE 1 MG TABLET PO SCH ×2 (15:35→21:20)
[2021-02-27] MEDS ORDERED: PALIPERIDONE PALMITATE 234 MG/1.5 ML SYRINGE IM ONE (17:45)
[2021-02-27] MEDS: hydrOXYzine pamoate 25 MG CAPSULE PO PRN (21:20)
[2021-02-28] MEDS: risperiDONE 1 MG TABLET PO SCH ×2 (09:26→21:02)
[2021-03-01] MEDS: risperiDONE 1 MG TABLET PO SCH ×2 (09:18→21:08)
[2021-03-02] MEDS: risperiDONE 1 MG TABLET PO SCH (09:15)
[2021-03-02] MEDS: hydrOXYzine pamoate 25 MG CAPSULE PO PRN (20:19)
[2021-03-02] MEDS ORDERED: Mirtazapine 15 MG TABLET PO SCH (21:00)
[2021-03-03] MEDS ORDERED: PALIPERIDONE PALMITATE 156 MG/ML SYRINGE IM SCH (09:00)
[2021-03-03 10:09] VITALS: BP 128/93
== END 2021-03-03 10:55 | disposition home or self-care (01) | DRG 751 ==
LOC: EMEROOARM 17:46 → 1ANU 02-27 14:43
PROVIDERS: ADMIT Psychiatry & Neurology Psychiatry; ATTEND Psychiatry & Neurology Psychiatry

== ENCOUNTER 2021-07-28 15:40 | Inpatient (IN) ==
[2021-07-28 17:04] LABS: Basophils % 0.2 %; Eosinophils # 0.1 K/mcL (0.0-0.6); Eosinophils % 2.4 %; Hematocrit 43.4 % (37.5-50.1); Hemoglobin 14.6 g/dL (12.9-16.9); Immature Granulocytes % 0.2 % (0-4); Lymphocytes % 22.5 %; Mean Corpuscular HGB Conc 33.6 g/dL (31.6-35.5); Mean Corpuscular Hemoglobin 29.8 pg (28.0-33.3); Mean Corpuscular Volume 88.6 fL (83.0-100.0); Mean Platelet Volume 13.2 fL (9.4-12.4); Monocytes # 0.3 K/mcL (0.0-1.3); Monocytes % 6.8 %; Neutrophils # 3.1 K/mcL (1.6-8.9); Platelet Count 185 K/mcL (140-400); Red Cell Distribution Width 13.3 % (11.5-14.5); Segmented Neutrophils % 67.9 %; White Blood Count 4.6 K/mcL (4.3-11.1)
[2021-07-28 17:24] LABS: Acetaminophen < 10 mcg/mL (10-20); BUN/Creatinine Ratio 15 (6-26); Blood Urea Nitrogen 14 mg/dL (6-20); Calcium 9.2 mg/dL (8.6-10.3); Carbon Dioxide 22 mEq/L (23-29); Chloride 108 mEq/L (98-107); Chol/HDL Ratio 2.3 (0-4.9); Cholesterol 131 mg/dL (< 200); Glucose 94 mg/dL (70-105); HDL Cholesterol 57 mg/dL (40-59); LDL Cholesterol,Calculated 67 mg/dL (< 100); Osmolality,Calculated 284 (280-300); Salicylate < 2.5 mg/dL (15.0-30.0); Sodium 137 mEq/L (136-145); Triglycerides 37 mg/dL (< 150); eGFR For African Americans > 60 (> 60); eGFR For Non-African Americans > 60 (> 60)
[2021-07-28 17:26] LABS: Ethanol < 10 mg/dL (Less than 10)
[2021-07-28 17:37] LABS: Estimated Average Glucose 94 mg/dl; Hemoglobin A1C 4.9 %
[2021-07-28 17:54] LABS: Bilirubin,Urine Negative (Negative); Blood,Urine Negative (Negative); Clarity,Urine Clear (Clear); Color,Urine Yellow (Yellow); Glucose,Urine (UA) Normal (Normal); Ketones,Urine Negative (Negative); Leukocyte Esterase,Urine Negative (Negative); Nitrite,Urine Negative (Negative); PH,Urine 5.5 pH Units (5.0-8.0); Protein,Urine Trace mg/dL (Neg-Trace); Specific Gravity,Urine 1.027 (1.010-1.025)
[2021-07-28 18:10] LABS: Amphetamine Screen,Urine Negative ng/mL (Cutoff=1000); Barbiturate Screen,Urine Negative ng/mL (Cutoff=200); Benzodiazepines Screen,Urine Negative ng/mL (Cutoff=200); Cannabinoid Screen,Urine Negative ng/mL (Cutoff = 50); Cocaine Screen,Urine Negative ng/mL (Cutoff= 300); Opiate Screen,Urine Negative ng/mL (Cutoff=300); Phencyclidine Screen,Urine Negative ng/mL (Cutoff=25)
[2021-07-28] MEDS ORDERED: Haloperidol Lactate 5 MG/ML VIAL IM PRN (19:42)
[2021-07-28] MEDS ORDERED: Acetaminophen 325 MG TABLET PO PRN (19:42)
[2021-07-28] MEDS ORDERED: Ibuprofen 400 MG TABLET PO PRN (19:42)
[2021-07-28] MEDS ORDERED: haloperidoL 5 MG TABLET PO PRN (19:42)
[2021-07-28] MEDS ORDERED: *HR* LORazepam 2 MG/ML VIAL IM PRN (19:42)
[2021-07-28] MEDS ORDERED: *HR* LORazepam 1 MG TABLET PO PRN (19:42)
[2021-07-29] MEDS ORDERED: Paliperidone Palmitate 234 MG/1.5 ML SYRINGE IM ONE (13:00)
[2021-07-29] MEDS: QUEtiapine Fumarate 25 MG TABLET PO PRN (20:42)
[2021-07-29] MEDS: hydrOXYzine pamoate 25 MG CAPSULE PO PRN (20:42)
[2021-07-30] MEDS: hydrOXYzine pamoate 25 MG CAPSULE PO PRN (20:46)
[2021-07-30] MEDS: QUEtiapine Fumarate 25 MG TABLET PO PRN (20:46)
[2021-07-31] MEDS: QUEtiapine Fumarate 25 MG TABLET PO PRN (21:08)
[2021-07-31] MEDS: hydrOXYzine pamoate 25 MG CAPSULE PO PRN (21:08)
[2021-08-02] MEDS ORDERED: Paliperidone Palmitate 156 MG/ML SYRINGE IM SCH (09:00)
[2021-08-02 09:28] VITALS: BP 124/83; PULSE 81; TEMP 98.3; O2SAT 99
[2021-08-02] MEDS ORDERED: FLU Vac QV 21-22 (6Month+)/PF 0.5 ML SYRINGE IM ONE (11:42)
[2021-08-05] MEDS ORDERED: Paliperidone Palmitate 156 MG/ML SYRINGE IM SCH (09:00)
== END 2021-08-02 13:20 | disposition home or self-care (01) | DRG 751 ==
LOC: EMEROOARM 15:40 → 1ANU 19:22
PROVIDERS: ADMIT Psychiatry & Neurology Psychiatry; ATTEND Psychiatry & Neurology Psychiatry